=== PATIENT | female | born 1945 | race Caucasian/White ===

== ENCOUNTER 2018-11-30 10:54 | Inpatient (IN) ==
--- OUTSIDE RECORDS SUMMARY | 2018-11-30 10:56 | External Medical Summary | Continuity of Care Document ---
:1945 Author Name Sana Betancourt, Provider Address Unavailable Unavailable , Care Team Providers Name Role Phone Raul Rolon M.D. Unavailable [email or web address] Unavailable Unavailable Unavailable Unavailable Unavailable Problems Arthritis (716.90) (M19.90) Asthma (493.90) (J45.909) Renal mass (593.9) (N28.89) Hypercholesterolemia (272.0) (E78.00) Hypertension (401.9) (I10) Diabetes mellitus (250.00) (E11.9) Bronchitis (490) (J40) Allergies and Adverse Reactions No Known Drug Allergies (Allergy) Medications Aspirin EC 325 MG Oral Tablet Delayed Release Refills: 0 Carvedilol 3.125 MG Oral Tablet Refills: 0 hydroCHLOROthiazide 25 MG Oral Tablet Refills: 0 Losartan Potassium 100 MG Oral Tablet Refills: 0 ALPRAZolam 0.25 MG Oral Tablet Refills: 0 Mag-Ox TABS Refills: 0 metFORMIN HCl - 1000 MG Oral Tablet Refills: 0 Crestor 5 MG Oral Tablet Refills: 0 Levothyroxine Sodium 50 MCG Oral Tablet Refills: 0 Vitamin D3 2000 UNIT Oral Tablet Refills: 0 NIFEdipine ER 30 MG Oral Tablet Extended Release 24 Hour Refills: 0 Singulair 10 MG Oral Tablet Refills: 0 ProAir HFA AERS Refills: 0 Vitamin B-12 TABS Refills: 0 Lasix 40 MG Oral Tablet Refills: 0 glipiZIDE 5 MG Oral Tablet Refills: 0 Lantus SOLN Refills: 0 Procedures History of knee surgery Status: Complete d History of cholecystectomy Status: Compl eted Immunizations Immunizations not documented Social History - Smoking Status Never smoker Plan of Treatment Planned Encounters Appointment; Raul Rolon M.D. Start: 25-Sep-2019 14:00 Request Planned Observations Planned Goals not documented Results No Known Results Results not documented Encounters Appointment; Raul Rolon M.D. 26-Sep-2018 13:00 Encounter Diagnosis: Problem not documented Appointment; Raul Rolon M.D. 20-Dec-2017 14:00 Encounter Diagnosis: Problem not documented Appointment; Raul Rolon M.D. 05-Jul-2017 14:10 Encounter Diagnosis: Problem not documented Appointment; Raul Rolon M.D. 25-Sep-2019 14:00 Encounter Diagnosis: Problem not documented
[2018-11-30] MEDS ORDERED: SODIUM CHLORIDE 0.9% 500 ML IV SCH (11:30)
[2018-11-30 11:42] LABS: Basophils # (auto) 0.05 K/uL (0-0.2); Basophils % (auto) 0.6 %; Eosinophils # (auto) 0.17 K/uL (0-0.5); Eosinophils % (auto) 1.9 %; Hematocrit (blood only) 36.9 % (37-47); Immature Granulocytes # (auto) 0.06 K/uL (0.00-0.02); Immature Granulocytes % (auto) 0.7 %; Lymphocytes % (auto) 14.4 %; Mean Corpuscular Hgb Conc 35.2 g/dL (32-36); Mean Platelet Volume 7.9 fL (7.4-10.4); Monocytes # (auto) 1.06 K/uL (0.11-0.59); Monocytes % (auto) 11.8 %; Neutrophils # (auto) 6.37 K/uL (1.4-6.5); Neutrophils % (auto) 70.6 %; Platelet Count 219 K/uL (130-400); RDW Coefficient of Variation 13.3 % (11.5-14.5); RDW Standard Deviation 41.7 fL (36.4-46.3); Red Blood Count 4.29 M/uL (4.2-5.4); White Blood Count 9.01 K/uL (4.8-10.8)
[2018-11-30 11:54] LABS: Partial Thromboplastin Ratio 1.2; Partial Thromboplastin Time 31.2 Seconds (21.0-31.0); Prothrombin Time 10.7 Seconds (9.0-12.0)
[2018-11-30 11:59] LABS: Alanine Aminotransferase 18 U/L (12-78); Albumin Level 3.7 gm/dl (3.4-5.0); Aspartate Aminotransferase 15 U/L (15-37); BUN Creatinine Ratio 10.7 (10-20); Blood Urea Nitrogen 9 mg/dl (7-18); Carbon Dioxide 30 mmol/L (21-32); Chloride 88 mmol/L (98-107); Creatinine Clr Calc Pharmacy 61.7 ml/min; Est GFR (African American) 81.1; Glucose 96 mg/dl (70-99); Potassium 3.6 mmol/L (3.5-5.1); Sodium 126 mmol/L (136-145)
[2018-11-30 12:04] LABS: Alkaline Phosphatase 100 U/L (45-117); Bilirubin,Total 0.9 mg/dl (0.2-1); Globulin 3.7 gm/dl (2.5-4.0); Total Protein 7.4 gm/dl (6.4-8.2); Troponin I < 0.015 ng/ml (0-0.045)
--- NOTE | 2018-11-30 12:11 | XRay Report ---
XR chest 1V portable CLINICAL HISTORY: Dyspnea. COMPARISON STUDY: No previous studies for comparison. FINDINGS: Lung volumes are normal. There is no pneumothorax or pleural effusion. Linear left midlung opacity suggests atelectasis or scarring. There is moderate cardiomegaly without evidence for pulmona ry edema. There may be mild dilatation of the central pulmonary arteries. IMPRESSION: 1. No acute cardiopulmonary findings. 2. Moderate cardiomegaly. 3. Right hilar prominence which is likely due to vasculature. Electronically signed by: Ramana Barrios M.D. 11/30/2018 12:10 PM
[2018-11-30] MEDS ORDERED: OPTIRAY 320 125ml IV PRN (12:34)
[2018-11-30 13:04] LABS: Appearance Urine Clear (Clear); Bilirubin Urine Negative (Negative); Blood Urine Negative (Negative); Color Urine Yellow; Glucose Urine UA Negative (Negative); Ketones Urine Negative (Negative); Leukocyte Esterase Urine Negative (Negative); Nitrite Urine Negative (Negative); Protein Urine Negative (Negative); Specific Gravity Urine 1.013 (1.000-1.030); Urobilinogen Urine Negative (Negative); pH Urine 7.5 (4.5-7.5)
--- NOTE | 2018-11-30 13:05 | CT Scan Report ---
CT ANGIOGRAPHY OF THE CHEST, PULMONARY EMBOLUS PROTOCOL CLINICAL HISTORY: Dyspnea, cough. COMPARISON STUDY: Chest radiograph performed earlier today. TECHNIQUE: Following IV administration of 76 mL of Optiray-320, helical axial images of the chest wer e obtained utilizing the pulmonary embolus protocol. Maximal intensity projections and sagittal and coronal reformats were viewed on an independent 3D workstation. IV contrast was administered without complication. Automated exposure control was utilized for the study. A dose lowering technique was utilized adhering to the principles of ALARA. CT DOSE: 627.52 mGy.cm FINDINGS: No pulmonary emboli are identified although the segmental and subsegmental pulmonary arter ies within the left lower lobe are suboptimally assessed due to respiratory motion. There is moderate cardiomegaly with moderate coronary artery calcification. There is no pericardial effusion. There is no thoracic lymphadenopathy. Central airways are patent. No consolidation is present. Minimal ground glass opacities with mosaic attenuation are noted. Upper abdomen is unremarkable. IMPRESSION: 1. No pulmonary emboli identified although segmental and subsegmental pulmonary arteries within the l eft lower lobe suboptimally assessed due to respiratory motion. 2. Moderate cardiomegaly. Moderate coronary artery calcification. Electronically signed by: Ramana Barrios M.D. 11/30/2018 1:03 PM
--- NOTE | 2018-11-30 13:27 | Emergency Department Note ---
Entered by Solis Bond acting as a scribe for Reji Serra M.D. History of Present Illness General Chief complaint: Cough Stated complaint: COUGH, DIARRHEA Source: patient History of Present Illness Onset (ago): week(s) (past couple) Location: chest (lungs) Pain Consistency: + other (persistent) Quality: + other (cough) Associated symptoms: + other (diarrhea, nausea without vomiting); no chest pain and no fever/chills The patient is a 73 year old female who presents to the Emergency Room with complaints of a persistent cough over the past couple of weeks. The patient states that her cough is occasionally productive of clear phlegm. She was placed on Tessalon Perles that seemed to somewhat improve her symptoms, but she has not taken it in the past couple days. She reports diarrhea as well as nausea primarily in the mornings. She denies vomiting, fevers, chest pain, or leg swelling. Family at bedside states that the patient has had loss of appetite and has lost 30 pounds over the past 2-3 months. The patient states that she has diabetes and her blood sugar has been normal over the past few days, but she did not measure it this morning. Home Medications Home Medications Medication Instructions Recorded Confirmed Type allopurinol 100 mg PO DAILY 11/30/18 11/30/18 History alprazolam 0.25 mg PO QID PRN 11/30/18 11/30/18 History aspirin 325 mg PO Q2D 11/30/18 11/30/18 History atorvastatin 10 mg PO QPM 11/30/18 11/30/18 History carvedilol 6.25 mg PO BID 11/30/18 11/30/18 History cholecalciferol (vitamin D3) 1,000 unit PO QPM 11/30/18 11/30/18 History hydrochlorothiazide 25 mg PO DAILY 11/30/18 11/30/18 History insulin glargine [Basaglar KwikPen 25 unit SUBCUT 11/30/18 11/30/18 History U-100 Insulin] levothyroxine 75 mcg PO DAILY 11/30/18 11/30/18 History losartan 100 mg PO HS 11/30/18 11/30/18 History magnesium oxide 400 mg PO BID 11/30/18 11/30/18 History metformin 500 mg PO BID 11/30/18 11/30/18 History montelukast 10 mg PO HS 11/30/18 11/30/18 History nifedipine 30 mg PO DAILY@1400 11/30/18 11/30/18 History ranitidine HCl 300 mg PO QAM 11/30/18 11/30/18 History Allergies Allergy/AdvReac Type Severity Reaction Status Date / Time KVNG Inhibitors Allergy Unknown UNKNOWN Verified 11/30/18 11:25 Penicillins Allergy Unknown . 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 and A total of 10 systems reviewed and were otherwise negative Physical Exam Vital Signs Vital Signs - 24 hr 11/30/18 10:56 11/30/18 12:20 11/30/18 13:43 Temperature 36.7 C Temperature Source Oral Sepsis Recent Fever Within 48 Hours No Sepsis Action Taken by Nursing No Action Required Pulse Rate 55 L Pulse Rate [Finger] 69 Respiratory Rate 18 17 Blood Pressure 179/80 H Blood Pressure [Left Arm] 167/82 H Blood Pressure Mean 113 Blood Pressure Mean [Left Arm] 110 Blood Pressure Position Sitting Pulse Oximetry 97 95 96 Oxygen Delivery Method Room Air Room Air GENERAL: Awake, alert, well-appearing, in no distress HENT: Normocephalic, atraumatic. EYES: Normal conjunctiva. Sclera non-icteric. NECK: Supple. No nuchal rigidity. RESPIRATORY: Diminished breath sounds at the lung bases. No wheezes. Normal respiratory effort. CARDIAC: Normal rate. Normal rhythm. Extremities warm and well perfused. GI: Soft, non-distended. No tenderness to palpation. No rebound or guarding. RECTAL: Deferred. MUSCULOSKELETAL: Atraumatic. Chest examination reveals no tenderness. LOWER EXTREMITIES: Calves are equal size bilaterally and non-tender. Trace bilateral pedal edema NEURO: Normal sensorium. No sensory or motor deficits noted. No facial droop. SKIN: Warm and dry. No rash or jaundice noted. Course 1109: The patient was evaluated in room C12B. A complete history and physical examination were performed. 1310: I updated the patient on findings. 1317: I consulted Yazmin Amador PA-C: [facility] Hospitalist. The patient will be reevaluated for hospitalization. Administered Medications Enoxaparin Sodium (Lovenox) 40 mg SQ Q24H LAISHA Stop: 12/30/18 15:59 Last Admin: 11/30/18 16:34 Dose: 40 mg Documented by: [id number] Sodium Chloride (Nss 1000ml) 1,000 mls @ 85 mls/hr IV .[id number] LAISHA Stop: 12/01/18 03:30 Last Admin: 11/30/18 15:52 Dose: 85 mls/hr Documented by: [id number] Insulin Aspart (Novolog Flexpen) 0 units SC ACHS LAISHA Stop: 12/30/18 16:29 Last Admin: 11/30/18 17:14 Dose: Not Given Documented by: [id number] Cosigned by: [id number] Discontinued Medications Sodium Chloride (Nss) 500 mls @ 999 mls/hr IV .[id number] LAISHA Stop: 11/30/18 12:00 Last Infusion: 11/30/18 12:10 Dose: 0 mls/hr Documented by: [id number] Admin: 11/30/18 11:37 Dose: 999 mls/hr Documented by: [id number] Ioversol (Optiray 320 125ml) 76 ml IV ONCE PRN PRN Reason: Interaction Checking Stop: 12/04/18 12:33 Last Admin: 11/30/18 12:34 Dose: 76 ml Documented by: [id number] Nifedipine (Procardia) 30 mg PO NOW STA Stop: 11/30/18 14:56 Last Admin: 11/30/18 16:33 Dose: 30 mg Documented by: [id number] Medical Decision Making Differential Diagnosis Differential diagnosis includes: infections, reactive airway disease, pneumonia, pneumothorax, COPD, CHF, cardiac ischemia, pulmonary embolism, musculoskeletal, gastrointestinal, as well as others were entertained. Medical Records Attestation: I reviewed the patient's medical records. Home Medications Current Medication List: was personally reviewed by me Laboratory Data Attestation: I reviewed the patient's lab results. Result diagrams: 11/30/18 11:30 11/30/18 11:30 Lab Results 11/30/18 11/30/18 11/30/18 Range/Units 11:30 11:30 11:30 WBC 9.01 (4.8-10.8) K/uL RBC 4.29 (4.2-5.4) M/uL Hgb 13.0 (12.0-16.0) g/dL Hct 36.9 L (37-47) % MCV 86.0 (80-100) fL MCH 30.3 (25-34) pg MCHC 35.2 (32-36) g/dL RDW Std Deviation 41.7 (36.4-46.3) fL RDW Coeff of Carly 13.3 (11.5-14.5) % Plt Count 219 (130-400) K/uL MPV 7.9 (7.4-10.4) fL Immature Gran % (Auto) 0.7 % Neut % (Auto) 70.6 % Lymph % (Auto) 14.4 % Glynn % (Auto) 11.8 % Eos % (Auto) 1.9 % Baso % (Auto) 0.6 % Immature Gran # (Auto) 0.06 H (0.00-0.02) K/uL Neut # (Auto) 6.37 (1.4-6.5) K/uL Lymph # (Auto) 1.30 (1.2-3.4) K/uL Glynn # (Auto) 1.06 H (0.11-0.59) K/uL Eos # (Auto) 0.17 (0-0.5) K/uL Baso # (Auto) 0.05 (0-0.2) K/uL PT 10.7 (9.0-12.0) Seconds INR 1.0 (0.9-1.1) APTT 31.2 H (21.0-31.0) Seconds PTT Ratio 1.2 Sodium 126 L (136-145) mmol/L Potassium 3.6 (3.5-5.1) mmol/L Chloride 88 L (98-107) mmol/L Carbon Dioxide 30 (21-32) mmol/L Anion Gap 8.0 (3-11) BUN 9 (7-18) mg/dl Creatinine 0.83 (0.6-1.2) mg/dl Est Cr Clr Drug Dosing 61.7 ml/min Est GFR ( Amer) 81.1 Est GFR (Non-Af Amer) 70.0 BUN/Creatinine Ratio 10.7 (10-20) Glucose 96 (70-99) mg/dl POC Glucose (70-99) Osmolality (280-300) mOsm/kg Calcium 10.0 (8.5-10.1) mg/dl Total Bilirubin 0.9 (0.2-1) mg/dl AST 15 (15-37) U/L ALT 18 (12-78) U/L Alkaline Phosphatase 100 (45-117) U/L Troponin I < 0.015 (0-0.045) ng/ml Total Protein 7.4 (6.4-8.2) gm/dl Albumin 3.7 (3.4-5.0) gm/dl Globulin 3.7 (2.5-4.0) gm/dl Albumin/Globulin Ratio 1.0 (0.9-2) Lipase 90 (73-393) U/L TSH (0.300-4.500) uIu/ml Urine Color Urine Appearance (Clear) Urine pH (4.5-7.5) Ur Specific [place] (1.000-1.030) Urine Protein (Negative) Urine Glucose (UA) (Negative) Urine Ketones (Negative) Urine Blood (Negative) Urine Nitrite (Negative) Urine Bilirubin (Negative) Urine Urobilinogen (Negative) Ur Leukocyte Esterase (Negative) Urine Osmolality (500-800) mOsm/kg Ur Random Sodium mmol/L 11/30/18 11/30/18 11/30/18 Range/Units 11:30 11:30 11:30 WBC (4.8-10.8) K/uL RBC (4.2-5.4) M/uL Hgb (12.0-16.0) g/dL Hct (37-47) % MCV (80-100) fL MCH (25-34) pg MCHC (32-36) g/dL RDW Std Deviation (36.4-46.3) fL RDW Coeff of Carly (11.5-14.5) % Plt Count (130-400) K/uL MPV (7.4-10.4) fL Immature Gran % (Auto) % Neut % (Auto) % Lymph % (Auto) % Glynn % (Auto) % Eos % (Auto) % Baso % (Auto) % Immature Gran # (Auto) (0.00-0.02) K/uL Neut # (Auto) (1.4-6.5) K/uL Lymph # (Auto) (1.2-3.4) K/uL Glynn # (Auto) (0.11-0.59) K/uL Eos # (Auto) (0-0.5) K/uL Baso # (Auto) (0-0.2) K/uL PT (9.0-12.0) Seconds INR (0.9-1.1) APTT (21.0-31.0) Seconds PTT Ratio Sodium (136-145) mmol/L Potassium (3.5-5.1) mmol/L Chloride (98-107) mmol/L Carbon Dioxide (21-32) mmol/L Anion Gap (3-11) BUN (7-18) mg/dl Creatinine (0.6-1.2) mg/dl Est Cr Clr Drug Dosing ml/min Est GFR ( Amer) Est GFR (Non-Af Amer) BUN/Creatinine Ratio (10-20) Glucose (70-99) mg/dl POC Glucose (70-99) Osmolality 257 L (280-300) mOsm/kg Calcium (8.5-10.1) mg/dl Total Bilirubin (0.2-1) mg/dl AST (15-37) U/L ALT (12-78) U/L Alkaline Phosphatase (45-117) U/L Troponin I (0-0.045) ng/ml Total Protein (6.4-8.2) gm/dl Albumin (3.4-5.0) gm/dl Globulin (2.5-4.0) gm/dl Albumin/Globulin Ratio (0.9-2) Lipase Cancelled (73-393) U/L TSH 2.970 (0.300-4.500) uIu/ml Urine Color Urine Appearance (Clear) Urine pH (4.5-7.5) Ur Specific [place] (1.000-1.030) Urine Protein (Negative) Urine Glucose (UA) (Negative) Urine Ketones (Negative) Urine Blood (Negative) Urine Nitrite (Negative) Urine Bilirubin (Negative) Urine Urobilinogen (Negative) Ur Leukocyte Esterase (Negative) Urine Osmolality (500-800) mOsm/kg Ur Random Sodium mmol/L 11/30/18 11/30/18 11/30/18 Range/Units 11:35 12:45 12:50 WBC (4.8-10.8) K/uL RBC (4.2-5.4) M/uL Hgb (12.0-16.0) g/dL Hct (37-47) % MCV (80-100) fL MCH (25-34) pg MCHC (32-36) g/dL RDW Std Deviation (36.4-46.3) fL RDW Coeff of Carly (11.5-14.5) % Plt Count (130-400) K/uL MPV (7.4-10.4) fL Immature Gran % (Auto) % Neut % (Auto) % Lymph % (Auto) % Glynn % (Auto) % Eos % (Auto) % Baso % (Auto) % Immature Gran # (Auto) (0.00-0.02) K/uL Neut # (Auto) (1.4-6.5) K/uL Lymph # (Auto) (1.2-3.4) K/uL Glynn # (Auto) (0.11-0.59) K/uL Eos # (Auto) (0-0.5) K/uL Baso # (Auto) (0-0.2) K/uL PT (9.0-12.0) Seconds INR (0.9-1.1) APTT (21.0-31.0) Seconds PTT Ratio Sodium (136-145) mmol/L Potassium (3.5-5.1) mmol/L Chloride (98-107) mmol/L Carbon Dioxide (21-32) mmol/L Anion Gap (3-11) BUN (7-18) mg/dl Creatinine (0.6-1.2) mg/dl Est Cr Clr Drug Dosing ml/min Est GFR ( Amer) Est GFR (Non-Af Amer) BUN/Creatinine Ratio (10-20) Glucose (70-99) mg/dl POC Glucose 104 H (70-99) Osmolality (280-300) mOsm/kg Calcium (8.5-10.1) mg/dl Total Bilirubin (0.2-1) mg/dl AST (15-37) U/L ALT (12-78) U/L Alkaline Phosphatase (45-117) U/L Troponin I (0-0.045) ng/ml Total Protein (6.4-8.2) gm/dl Albumin (3.4-5.0) gm/dl Globulin (2.5-4.0) gm/dl Albumin/Globulin Ratio (0.9-2) Lipase (73-393) U/L TSH (0.300-4.500) uIu/ml Urine Color Yellow Urine Appearance Clear (Clear) Urine pH 7.5 (4.5-7.5) Ur Specific [place] 1.013 (1.000-1.030) Urine Protein Negative (Negative) Urine Glucose (UA) Negative (Negative) Urine Ketones Negative (Negative) Urine Blood Negative (Negative) Urine Nitrite Negative (Negative) Urine Bilirubin Negative (Negative) Urine Urobilinogen Negative (Negative) Ur Leukocyte Esterase Negative (Negative) Urine Osmolality 166 L (500-800) mOsm/kg Ur Random Sodium mmol/L 11/30/18 Range/Units 12:50 WBC (4.8-10.8) K/uL RBC (4.2-5.4) M/uL Hgb (12.0-16.0) g/dL Hct (37-47) % MCV (80-100) fL MCH (25-34) pg MCHC (32-36) g/dL RDW Std Deviation (36.4-46.3) fL RDW Coeff of Carly (11.5-14.5) % Plt Count (130-400) K/uL MPV (7.4-10.4) fL Immature Gran % (Auto) % Neut % (Auto) % Lymph % (Auto) % [place]nn % (Auto) % Eos % (Auto) % Baso % (Auto) % Immature Gran # (Auto) (0.00-0.02) K/uL Neut # (Auto) (1.4-6.5) K/uL Lymph # (Auto) (1.2-3.4) K/uL Glynn # (Auto) (0.11-0.59) K/uL Eos # (Auto) (0-0.5) K/uL Baso # (Auto) (0-0.2) K/uL PT (9.0-12.0) Seconds INR (0.9-1.1) APTT (21.0-31.0) Seconds PTT Ratio Sodium (136-145) mmol/L Potassium (3.5-5.1) mmol/L Chloride (98-107) mmol/L Carbon Dioxide (21-32) mmol/L Anion Gap (3-11) BUN (7-18) mg/dl Creatinine (0.6-1.2) mg/dl Est Cr Clr Drug Dosing ml/min Est GFR ( Amer) Est GFR (Non-Af Amer) BUN/Creatinine Ratio (10-20) Glucose (70-99) mg/dl POC Glucose (70-99) Osmolality (280-300) mOsm/kg Calcium (8.5-10.1) mg/dl Total Bilirubin (0.2-1) mg/dl AST (15-37) U/L ALT (12-78) U/L Alkaline Phosphatase (45-117) U/L Troponin I (0-0.045) ng/ml Total Protein (6.4-8.2) gm/dl Albumin (3.4-5.0) gm/dl Globulin (2.5-4.0) gm/dl Albumin/Globulin Ratio (0.9-2) Lipase (73-393) U/L TSH (0.300-4.500) uIu/ml Urine Color Urine Appearance (Clear) Urine pH (4.5-7.5) Ur Specific [place] (1.000-1.030) Urine Protein (Negative) Urine Glucose (UA) (Negative) Urine Ketones (Negative) Urine Blood (Negative) Urine Nitrite (Negative) Urine Bilirubin (Negative) Urine Urobilinogen (Negative) Ur Leukocyte Esterase (Negative) Urine Osmolality (500-800) mOsm/kg Ur Random Sodium 37 mmol/L Imaging Data Radiologist's Impression: Radiology results as stated below per my review and the radiologist's interpretation: CT ANGIOGRAPHY OF THE CHEST, PULMONARY EMBOLUS PROTOCOL CLINICAL HISTORY: Dyspnea, cough. COMPARISON STUDY: Chest radiograph performed earlier today. TECHNIQUE: Following IV administration of 76 mL of Optiray-320, helical axial images of the chest were obtained utilizing the pulmonary embolus protocol. Maximal intensity projections and sagittal and coronal reformats were viewed on an independent 3D workstation. IV contrast was administered without complication. Automated exposure control was utilized for the study. A dose lowering technique was utilized adhering to the principles of ALARA. CT DOSE: 627.52 mGy.cm FINDINGS: No pulmonary emboli are identified although the segmental and subs egmental pulmonary arteries within the left lower lobe are suboptimally assessed due to respiratory motion. There is moderate cardiomegaly with moderate coronary artery calcification. There is no pericardial effusion. There is no thoracic lymphadenopathy. Central airways are patent. No consolidation is present. Minimal groundglass opacities with mosaic attenuation are noted. Upper abdomen is unremarkable. IMPRESSION: 1. No pulmonary emboli identified although segmental and subsegmental pulmonary arteries within the left lower lobe suboptimally assessed due to respiratory motion. 2. Moderate cardiomegaly. Moderate coronary artery calcification. Electronically signed by: Ramana Barrios M.D. 11/30/2018 1:03 PM XR chest 1V portable CLINICAL HISTORY: Dyspnea. COMPARISON STUDY: No previous studies for comparison. FINDINGS: Lung volumes are normal. There is no pneumothorax or pleural effusion. Linear left midlung opacity suggests atelectasis or scarring. There is moderate cardiomegaly without evidence for pulmonary edema. There may be mild dilatation of the central pulmonary arteries. IMPRESSION: 1. No acute cardiopulmonary findings. 2. Moderate cardiomegaly. 3. Right hilar prominence which is likely due to vasculature. Electronically signed by: Ramana Barrios M.D. 11/30/2018 12:10 PM ECG Data Attestation: I personally reviewed and interpreted this ECG as follows: Indication: weakness Rate (beats per minute): 58 Rhythm: sinus bradycardia Findings: + PAC and + RBBB (incomplete); no ST depression and no ST elevation Blood Pressure Blood Pressure Findings: Elevated blood pressure Blood Pressure Disposition: further management by hospitalist SAMANTHA Naylor Patient is a 73-year-old female with history of cellulitis, diabetes hypothyroidism, hyperlipidemia presenting today with complaint of one month of a cough initially dry now somewhat productive. Also reports some nausea in the morning and feeling a bit weak. Referred by primary care physician for rule out pneumonia versus bronchitis. Afebrile upon arrival and not hypoxic. EKG was completed lower suspicion this is acute ACS. No gross evidence of fluid overload. Chest x-ray is completed. Doubt this represents pulmonary embolism or aortic dissection. No evidence of pneumothorax. Patient also relays some nausea at times as well as some loose stools that time. Benign abdomen. Relays the months of weight loss. No significant lower extremity swelling. Family also concerned about possible intrathoracic mass or blood clot and CT scan was requested and completed. EKG and troponin was completed as well as basic laboratory studies. No evidence of acute heart failure. No significant leukocytosis or anemia. Patient does interestingly have a new hyponatremia of 126. No evidence of hepatitis or pancreatitis. No with acute kidney injury. Patient not having acute mental status changes but feeds were weakened with the acute hyponatremia due to some concern about this. Patient again states decreased oral intake over the past week and further probing relays that she has been may be a little bit more confused recently. Given this discussed with her and her family to stay in the hospital further evaluation of this normalization of her sodium level extremities on her symptoms. She was in agreement with this plan. [facility] hospitalist was contacted. Impression & Plan Hyponatremia, Cough, Weakness Discharge Plan Visit Data *Final* Discharge Date/Time: 11/30/18 14:50 Chief Complaint: Cough Stated Complaint: COUGH, DIARRHEA ED Provider: Reji Serra Discharge Problem: Hyponatremia, Cough, Weakness Patient Disposition: Admitted As Inpatient Discharge Instructions Interventions: ED Discharge Assessment Last Done: 11/30/18 14:50 The scribe's documentation has been prepared under my direction and personally reviewed by me in its entirety. I confirm that the note above accurately reflects all work, treatment, procedures, and medical decision making performed by me.
--- NOTE | 2018-11-30 14:50 | History & Physical Report ---
Date of Service November 30, 2018 Assessment & Plan (1) Hyponatremia: This is a 73-year-old female with a PMH of type 2 diabetes, hypertension, hyperlipidemia, anxiety, hypothyroidism and other medical problems listed below who presents with cough x 2 weeks as well as nausea and was found to have hyponatremia. -Sodium of 126 in setting of poor PO intake, diarrhea and diuretic use -Serum and urine osm both low, indicating hypotonic hypovolemic hyponatremia -Likely due to diuretic use as well as GI losses from recent diarrhea -Received 500ml bolus of NSS in ED. Will continue with 1L NSS at maintenance rate and recheck BMP this evening -Hold HCTZ (2) Cough: Likely due to allergic rhinitis -No evidence of PNA, volume overload or PE on CXR or chest CTA -Continue with home dose Singulair -Follow up with PCP (3) Hypertension: Elevated at time of evaluation, due for afternoon home dose of nicardipine -Continue losartan -Hold HCTZ due to hyponatremia (4) Diabetes mellitus, type II: A1c unknown. Ordered -Hold home agents -SSI while in-patient -BSG AC HS (5) Hypothyroidism: Continue levothyroxine (6) CAD (coronary artery disease): Cardiac cath in January 2018 without evidence of obstructive disease -Continue full dose aspirin q. 2 days, carvedilol, statin (7) Anxiety: Alprazolam at bedtime as needed DVT Ppx: SQ Lovenox Code status: FULL PCP: Lela (Brandt) Dispo: Admitted to [facility]. Plan to return home once medically stable. Patient seen in collaboration with Dr. Da Silva. Please see addendum. History of Present Illness Chief Complaint: Cough, nausea Primary Care Provider: Logan Vogel This is a 73-year-old female with a PMH of type 2 diabetes, hypertension, hyperlipidemia, anxiety, hypothyroidism and other medical problems listed below who presents with cough x 2 weeks. Patient has had cough with occasional clear productive sputum for the last few weeks. Saw PCP about this, who attributed symptoms to allergies. In the last week, patient has had nausea in the morning and a few days of diarrhea following eating food that had been sitting in the car for a few hours. Diarrhea has slowly been subsiding. Endorses poor PO intake for the past few weeks. Daughter at bedside notes that patient seems a bit more confused than normal. Denies any vomiting or abdominal pain. No fever, chills, wheezing or hemoptysis. Patient was directed by PCP to come in the ED today for further evaluation of pneumonia. Hemodynamically stable. No acute cardiopulmonary findings on chest x-ray. No evidence of PE on chest CTA. Sodium found to be 126. Allergies Allergy/AdvReac Type Severity Reaction Status Date / Time KVNG Inhibitors Allergy Unknown UNKNOWN Verified 11/30/18 11:25 Penicillins Allergy Unknown . Verified 11/30/18 11:25 prednisone Allergy Unknown UNKNOWN Verified 11/30/18 11:25 Home Medications Home Medications Medication Instructions Recorded Confirmed Type allopurinol 100 mg PO DAILY 11/30/18 11/30/18 History alprazolam 0.25 mg PO QID PRN 11/30/18 11/30/18 History aspirin 325 mg PO Q2D 11/30/18 11/30/18 History atorvastatin 10 mg PO QPM 11/30/18 11/30/18 History carvedilol 6.25 mg PO BID 11/30/18 11/30/18 History cholecalciferol (vitamin D3) 1,000 unit PO QPM 11/30/18 11/30/18 History hydrochlorothiazide 25 mg PO DAILY 11/30/18 11/30/18 History insulin glargine [Basaglar KwikPen 25 unit SUBCUT HS 11/30/18 11/30/18 History U-100 Insulin] levothyroxine 75 mcg PO DAILY 11/30/18 11/30/18 History losartan 100 mg PO HS 11/30/18 11/30/18 History magnesium oxide 400 mg PO BID 11/30/18 11/30/18 History metformin 500 mg PO BID 11/30/18 11/30/18 History montelukast 10 mg PO HS 11/30/18 11/30/18 History nifedipine 30 mg PO DAILY@1400 11/30/18 11/30/18 History ranitidine HCl 300 mg PO QAM 11/30/18 11/30/18 History Past Med/Surg History Medical History CAD (coronary artery disease) (Chronic) Anxiety (Chronic) Gout (Chronic) HLD (hyperlipidemia) (Chronic) Hypothyroidism (Chronic) Diabetes mellitus, type II (Chronic) Hypertension (Chronic) Surgical History History of bilateral knee replacement (Chronic) History of cholecystectomy (Chronic) Family History Other Heart disease Stomach cancer Social History Preferred Language: Brazilian Communication Ability: Effective Film Processor Required: No Beliefs That Will Affect Care: None Current Living Situation: Spouse Other Information That Helps Us Care for You: No Feels Safe at Home: Yes Safety Concerns: Feels Safe At This Time Smoking Status: Never smoker Do You Dip or Chew Tobacco: No Second Hand Exposure: No Tobacco Cessation Education Requested by Patient: No Hx Alcohol Use: Yes Alcohol type: wine Hx Substance Use: No Review of Systems Review of Systems: At least ten systems reviewed and negative except as noted in the HPI. Physical Exam Physical Exam: General Appearance: WD/WN, no apparent distress, resting comfortably Head: normocephalic, atraumatic Eyes: normal inspection, PERRL, EOMI ENT: hearing grossly normal, pharynx normal (dry mucous membranes, cobblestoning of posterior throat) Neck: supple, no JVD, no adenopathy Respiratory/Chest: lungs clear to auscultation. No wheezes, rales or rhonci. No respiratory distress or accessory muscle use Cardiovascular: regular rate, rhythm, no murmur, normal peripheral pulses Abdomen/GI: normal bowel sounds, soft, non-tender to palpation Extremities/Musculoskelatal: normal inspection, no calf tenderness, normal capillary refill, no pedal edema Neurologic/Psych: alert, normal mood/affect, oriented x 3 Skin: normal color, warm/dry, ecchymosis on R dorsum of hand Results & Data Vital Signs (Past 12 Hours) Vital Signs Temp Pulse Pulse Resp BP BP Pulse Ox 11/30/18 14:20 56 L 18 192/72 H 97 11/30/18 13:43 96 11/30/18 12:20 69 17 167/82 H 95 11/30/18 10:56 36.7 C 55 L 18 179/80 H 97 Laboratory Results Short CBC 11/30/18 Range/Units 11:30 WBC 9.01 (4.8-10.8) K/uL Hgb 13.0 (12.0-16.0) g/dL Hct 36.9 L (37-47) % Plt Count 219 (130-400) K/uL BMP 11/30/18 11:30 Sodium 126 L Potassium 3.6 Chloride 88 L Carbon Dioxide 30 BUN 9 Creatinine 0.83 Glucose 96 Calcium 10.0 Cardiac Enzymes 11/30/18 Range/Units 11:30 Troponin I < 0.015 (0-0.045) ng/ml Liver Function 11/30/18 Range/Units 11:30 Total Bilirubin 0.9 (0.2-1) mg/dl AST 15 (15-37) U/L ALT 18 (12-78) U/L Alkaline Phosphatase 100 (45-117) U/L Albumin 3.7 (3.4-5.0) gm/dl Urine 11/30/18 Range/Units 12:45 Urine Color Yellow Urine Appearance Clear (Clear) Urine pH 7.5 (4.5-7.5) Ur Specific [place] 1.013 (1.000-1.030) Urine Protein Negative (Negative) Urine Glucose (UA) Negative (Negative) Diagnostic Findings CXR: IMPRESSION: 1. No acute cardiopulmonary findings. 2. Moderate cardiomegaly. 3. Right hilar prominence which is likely due to vasculature. Chest CTA: IMPRESSION: 1. No pulmonary emboli identified although segmental and subsegmental pulmonary arteries within the left lower lobe suboptimally assessed due to respiratory motion. 2. Moderate cardiomegaly. Moderate coronary artery calcification. Supervising Physician Co-Signing Physician Notes Pt was seen and examined. Agreed with [facility] exam, assessment and plan. 73-year-old female with a PMH of type 2 diabetes, hypertension, hyperlipidemia, anxiety, hypothyroidism present to the ED for cough. Pt said that cough has been going on for weeks. She said that she used tessalon perle with minimal relief. She said that she has been having a hard time to bring the phlegm out. Pt said that on Sunday she developed watery diarrhea after eating food that was stayed in the car over night. Pt said that her dog and her also ate the food and had the diarrhea as well. On admission lab showed low Na 126. Pt said that diarrhea seems to improve. Denies any chest pain, palpitation, dizziness and SOB. Will hold HTCZ. Will continue IV hydration with NS. Check BMP later. Continue monitor closely. Please refer to Yazmin PA-C documentation for other problems. MD Rekha
[2018-11-30] MEDS ORDERED: NIFEdipine 10 MG CAP PO STA (14:55)
[2018-11-30] MEDS ORDERED: ACETAMINOPHEN 325 MG TAB PO PRN (15:20)
[2018-11-30] MEDS ORDERED: GLUCOSE 10 TABS/TUBE PO PRN (15:20)
[2018-11-30] MEDS ORDERED: ONDANSETRON INJ 2 MG/ML 2 ML VIAL IV PRN (15:20)
[2018-11-30] MEDS ORDERED: CARBOHYDRATES FOR HYPOGLYCEMIA PO PRN (15:20)
[2018-11-30] MEDS ORDERED: GLUCAGON FOR INJ 1 MG VIAL SQ PRN (15:20)
[2018-11-30] MEDS ORDERED: GLUCOSE 40% GEL 15 GM TUBE PO PRN (15:20)
[2018-11-30] MEDS ORDERED: DEXTROSE 50% 50 ML SYRINGE IV PRN (15:20)
[2018-11-30] MEDS ORDERED: POLYETHYLENE (MIRALAX) 17 GM PACK PO PRN (15:20)
[2018-11-30] MEDS: SODIUM CHLORIDE 0.9% 1000ML 1,000 ML IV SCH (15:52)
[2018-11-30] MEDS: ENOXAPARIN INJ 40 MG/0.4 ML SYR SQ SCH (16:34)
[2018-11-30] MEDS: INSULIN ASPART 100 UNITS/ML 3 ML PEN SC SCH ×2 (17:14→21:39)
[2018-11-30 19:22] LABS: BUN Creatinine Ratio 9.6 (10-20); Calcium 9.1 mg/dl (8.5-10.1); Creatinine Clr Calc Pharmacy 62.5 ml/min; Est GFR (African American) 82.3; Potassium 3.6 mmol/L (3.5-5.1)
[2018-11-30] MEDS: LOSARTAN POTASSIUM 50 MG TAB PO SCH (20:30)
[2018-11-30] MEDS: MAGNESIUM OXIDE 400 MG TAB PO SCH (20:31)
[2018-11-30] MEDS: ATORVASTATIN 10 MG TAB PO SCH (20:31)
[2018-11-30] MEDS: CHOLECALCIFEROL 1,000 UNITS TAB PO SCH (20:31)
[2018-11-30] MEDS: MONTELUKAST SODIUM 10 MG TABLET PO SCH (20:31)
[2018-11-30] MEDS ORDERED: CARVEDILOL 6.25 MG TAB PO SCH (21:00)
[2018-11-30] MEDS: ALPRAZolam 0.25 MG TABLET PO PRN (23:35)
[2018-12-01] MEDS ORDERED: POTASSIUM CHLORIDE 20 MEQ TABCR PO STA (01:14)
--- NOTE | 2018-12-01 01:15 | Hospitalist Progress Note ---
Date of Service December 01, 2018 Subjective Made aware by RN of transient bradycardia 30s around 2 AM. Patient asymptomatic. Patient predominant heart rate during confinement 55 to 60s. AP Episodic bradycardia (asymptomatic) Decrease maintenance Coreg dose. Hold home Nifedipine. Will relay to AM provider. Results & Data Vital Signs (Past 12 Hours) Vital Signs Temp Pulse Pulse Resp BP BP Pulse Ox 11/30/18 23:40 81 11/30/18 23:11 36.4 C L 59 L 18 155/88 H 96 11/30/18 19:22 36.4 C L 64 18 148/74 H 95 11/30/18 16:00 51 L 11/30/18 15:20 36.8 C 53 L 18 174/63 H 98 11/30/18 14:50 60 17 159/81 H 97 11/30/18 14:20 56 L 18 192/72 H 97 11/30/18 13:43 96 Pulse Ox 11/30/18 23:40 11/30/18 23:11 11/30/18 19:22 11/30/18 16:00 11/30/18 15:20 98 11/30/18 14:50 11/30/18 14:20 11/30/18 13:43
[2018-12-01 01:42] LABS: Basophils # (auto) 0.06 K/uL (0-0.2); Basophils % (auto) 0.7 %; Eosinophils % (auto) 2.2 %; Hematocrit (blood only) 36.1 % (37-47); Hemoglobin 12.3 g/dL (12.0-16.0); Immature Granulocytes # (auto) 0.04 K/uL (0.00-0.02); Immature Granulocytes % (auto) 0.4 %; Lymphocytes # (auto) 1.99 K/uL (1.2-3.4); Lymphocytes % (auto) 22.3 %; Mean Corpuscular Hgb Conc 34.1 g/dL (32-36); Mean Corpuscular Volume 87.4 fL (80-100); Mean Platelet Volume 7.8 fL (7.4-10.4); Monocytes # (auto) 0.93 K/uL (0.11-0.59); Monocytes % (auto) 10.4 %; Neutrophils # (auto) 5.69 K/uL (1.4-6.5); Platelet Count 209 K/uL (130-400); RDW Coefficient of Variation 13.2 % (11.5-14.5); RDW Standard Deviation 42.3 fL (36.4-46.3); Red Blood Count 4.13 M/uL (4.2-5.4); White Blood Count 8.91 K/uL (4.8-10.8)
[2018-12-01 02:02] LABS: BUN Creatinine Ratio 12.1 (10-20); Calcium 8.5 mg/dl (8.5-10.1); Creatinine Clr Calc Pharmacy 67.4 ml/min; Est GFR (African American) 90.2; Est GFR (Non-African American) 77.8; Magnesium 1.4 mg/dl (1.8-2.4); Potassium 3.6 mmol/L (3.5-5.1)
[2018-12-01] MEDS: SODIUM CHLORIDE 0.9% 1000ML 1,000 ML IV SCH ×2 (03:22→19:51)
[2018-12-01] MEDS: LEVOTHYROXINE SODIUM 75 MCG TABLET PO SCH (06:00)
[2018-12-01] MEDS: CARVEDILOL 3.125 MG TAB PO SCH ×2 (08:22→20:45)
[2018-12-01] MEDS: MAGNESIUM OXIDE 400 MG TAB PO SCH ×2 (08:26→20:53)
[2018-12-01] MEDS: ALLOPURINOL 100 MG TAB PO SCH (08:26)
[2018-12-01] MEDS: MAGNESIUM SULFATE / D5W 1 GM/100 ML BAG IV SCH ×2 (08:27→10:04)
[2018-12-01] MEDS: INSULIN ASPART 100 UNITS/ML 3 ML PEN SC SCH ×4 (08:36→20:53)
[2018-12-01] MEDS ORDERED: ASPIRIN 325 MG ECTAB PO SCH (09:00)
--- NOTE | 2018-12-01 12:40 | Hospitalist Progress Note ---
Date of Service December 01, 2018 Assessment & Plan (1) Hyponatremia: Patient is a 73 yr female with H/O DM II, HTN, hyperlipidemia, anxiety, hypothyroidism and other medical problems listed below who presents with cough x 2 weeks as well as nausea and was found to have hyponatremia. Hypotonic hypovolemic hyponatremia In setting of HCTZ use, poor PO intake, diarrhea Sodium levels: 126>>>130 Hold HCTZ Continue IV fluids Monitor sodium levels (2) Cough: Likely due to allergic rhinitis CTA: No pulmonary emboli identified although segmental and subsegmental pulmonary arteries within the left lower lobe suboptimally assessed due to respiratory motion. Moderate cardiomegaly. Moderate coronary artery calcification. Chronic cough in setting of Hyponatremia, GI symptoms To R/O legionella Continue Singulair (3) Hypertension: HTN Sinus Bradycardia Asymptomatic BP elevated Continue Nicardipine, losartan Hold HCTZ due to hyponatremia Decrease Carvedilol due to bradycardia (4) Diabetes mellitus, type II: A1c unknown. Ordered -Hold home agents -SSI while in-patient -BSG AC HS (5) Hypothyroidism: TSH: normal Continue levothyroxine (6) CAD (coronary artery disease): Cardiac cath in January 2018 without evidence of obstructive disease Continue aspirin, carvedilol, statin (7) Anxiety: Alprazolam at bedtime as needed DVT Px: SQ Lovenox Code status: FULL Disposition: Plan to return home once medically stable. Subjective Patient is seen and examined at bedside States feeling better today Chronic dry cough which she attributes to allergies Appetite improved Sodium level slowly improving Denies any chest pain, shortness of breath, dizziness, abd pain, diarrhea Eager to get discharged Bradycardic overnight but asymptomatic Review of Systems Review of Systems: All systems reviewed & are unremarkable except as noted in HPI & below Physical Exam Physical Exam: Physical Exam: Vitals signs as noted above General Appearance:Moderately built and nourished, no apparent distress Head: normocephalic, Atraumatic Eyes: normal inspection, EOMI Neck: supple, Trachea midline Respiratory/Chest: Normal breath sounds, CTA Cardiovascular: S1, S2, No murmur, +Bradycardia Abdomen/GI:Soft, Non tender, Bowel sounds present Extremities/Musculoskelatal:normal inspection, no edema Neurologic/Psych:AAOX3, grossly no focal neurological deficits Skin: normal color, warm Results & Data Vital Signs (Past 12 Hours) Vital Signs Temp Pulse Resp BP Pulse Ox 12/01/18 11:19 36.5 C 53 L 20 164/63 H 96 12/01/18 07:15 36.7 C 64 20 159/84 H 96 12/01/18 04:08 36.7 C 59 L 18 146/69 H 95 Laboratory Results Short CBC 12/01/18 Range/Units 01:23 WBC 8.91 (4.8-10.8) K/uL Hgb 12.3 (12.0-16.0) g/dL Hct 36.1 L (37-47) % Plt Count 209 (130-400) K/uL BMP 11/30/18 12/01/18 12/01/18 18:58 01:23 07:58 Sodium 127 L 128 L 130 L Potassium 3.6 3.6 Chloride 89 L 92 L Carbon Dioxide 32 30 BUN 8 9 Creatinine 0.82 0.76 Glucose 143 H 156 H Calcium 9.1 8.5 Urine 11/30/18 Range/Units 12:45 Urine Color Yellow Urine Appearance Clear (Clear) Urine pH 7.5 (4.5-7.5) Ur Specific [place] 1.013 (1.000-1.030) Urine Protein Negative (Negative) Urine Glucose (UA) Negative (Negative)
[2018-12-01] MEDS ORDERED: NIFEdipine EXTENDED REL 30 MG TABCR PO SCH (14:00)
[2018-12-01] MEDS: ENOXAPARIN INJ 40 MG/0.4 ML SYR SQ SCH (16:51)
[2018-12-01] MEDS: ATORVASTATIN 10 MG TAB PO SCH (20:53)
[2018-12-01] MEDS: LOSARTAN POTASSIUM 50 MG TAB PO SCH (20:53)
[2018-12-01] MEDS: MONTELUKAST SODIUM 10 MG TABLET PO SCH (20:54)
[2018-12-01] MEDS: CHOLECALCIFEROL 1,000 UNITS TAB PO SCH (20:54)
[2018-12-01] MEDS: ALPRAZolam 0.25 MG TABLET PO PRN (23:21)
[2018-12-01] MEDS ORDERED: AMLODIPINE BESYLATE 5 MG TAB PO ONE (23:56)
--- NOTE | 2018-12-02 00:09 | Hospitalist Progress Note ---
Date of Service December 02, 2018 Subjective Made aware by RN of uncontrolled BP. SBP 1 40-1 80s. Episodic bradycardia, cardiac rate 30s. Patient asymptomatic as per RN. AP Hypertensive urgency Initiate Norvasc Continue low-dose Coreg, would not escalate dose further given bradycardic episodes. Will relay to AM provider. Results & Data Vital Signs (Past 12 Hours) Vital Signs Temp Pulse Pulse Resp BP Pulse Ox 12/01/18 23:27 37.0 C 56 L 18 177/72 H 93 12/01/18 23:20 56 L 12/01/18 20:52 49 L 172/62 H 12/01/18 19:36 36.5 C 54 L 18 181/71 H 99 12/01/18 16:00 47 L 12/01/18 15:38 36.3 C L 42 L 18 164/65 H 96
[2018-12-02] MEDS ORDERED: POTASSIUM CHLORIDE 20 MEQ TABCR PO STA (00:23)
[2018-12-02] MEDS ORDERED: MAGNESIUM SULFATE / D5W 1 GM/100 ML BAG IV ONE (00:24)
[2018-12-02] MEDS ORDERED: ATROPINE SULFATE 0.1 MG/ML 5ML SYR IV PRN (00:27)
[2018-12-02 00:56] LABS: BUN Creatinine Ratio 14.3 (10-20); Calcium 8.2 mg/dl (8.5-10.1); Creatinine Clr Calc Pharmacy 61.9 ml/min; Est GFR (African American) 81.1; Magnesium 2.1 mg/dl (1.8-2.4); Potassium 3.9 mmol/L (3.5-5.1)
[2018-12-02] MEDS: LEVOTHYROXINE SODIUM 75 MCG TABLET PO SCH (05:59)
[2018-12-02 06:21] LABS: Estimated Average Glucose 128 mg/dl; Hemoglobin A1C 6.1 % (4.5-5.6)
[2018-12-02] MEDS ORDERED: HydrALAZINE 10 MG TAB PO PRN (07:23)
[2018-12-02 08:09] LABS: Lyme Ab IgG w/WB Rflx Negative (Negative); Lyme Ab IgM w/WB Rflx Negative (Negative)
[2018-12-02] MEDS: MAGNESIUM OXIDE 400 MG TAB PO SCH (09:17)
[2018-12-02] MEDS: INSULIN ASPART 100 UNITS/ML 3 ML PEN SC SCH ×3 (09:18→17:15)
[2018-12-02] MEDS: ALLOPURINOL 100 MG TAB PO SCH (09:18)
[2018-12-02] MEDS ORDERED: AMLODIPINE BESYLATE 5 MG TAB PO SCH (09:45)
[2018-12-02] MEDS ORDERED: FUROSEMIDE 40 MG TAB PO SCH (10:15)
--- NOTE | 2018-12-02 10:21 | Consultation Report ---
DATE OF CONSULTATION: 12/02/2018 INPATIENT CARDIOLOGY CONSULTATION CONSULTATION REQUESTED BY: Dr. Doty. REASON FOR CONSULTATION: Uncontrolled hypertension with relative bradycardia. HISTORY OF PRESENT ILLNESS: Mrs. Prajapati is a very pleasant 73-year-old woman who is unknown to [facility], who presented to [facility] on 11/30/2018 with complaints of nausea and diarrhea. The patient has been having chronic cough and stomach upset, which her PCP has told her was allergies along with sinus drainage. However, on the , she noted that she had been very busy in the preceding days. She has had decreased oral intake and believe she ate some food that might have been spoiled as well. Upon presentation, she was found to be significantly hyponatremic. She was given IV fluids. Her hydrochlorothiazide was held and she was admitted to telemetry. Her symptoms slowly improved; however, in the early a.m. of 12/02/2018 was noted to be significantly hypertensive and she was given a low dose of amlodipine. Throughout all this, the patient denies any cardiac complaints. Specifically, denied any chest pain, shortness of breath, palpitations, lightheadedness, dizziness, or syncope. Currently, she states that her nausea is improved and she is feeling better. She is anxious to get home to her who she cares for due to his Alzheimer's disease and their young puppy. Of note, the patient follows with Dr. Wilder. She is not quite sure why. She states that she thinks she had a catheterization about a year ago and was told she does not need stents. She is not able to provide any further details. She does not believe she has had any stress test since the catheterization. PAST SURGICAL HISTORY: 1. Questionable cardiac catheterization. 2. Cholecystectomy. 3. Bilateral knee replacements. MEDICAL ILLNESSES: 1. Questionable coronary artery disease, but denies stent placement. 2. Anxiety. 3. Gout. 4. Hypertension. 5. Type 2 diabetes. 6. Hypothyroidism. 7. Hyperlipidemia. FAMILY HISTORY: Noncontributory. SOCIAL HISTORY: Denies any alcohol, tobacco or recreational drug use. 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 REVIEW OF SYSTEMS: As per HPI, all other review of systems reviewed and negative at this time. ALLERGIES: 1. KVNG INHIBITOR. 2. PENICILLIN. 3. PREDNISONE. MEDICATIONS AN OUTPATIENT: 1. Aspirin 325 mg q. 48 hours. 2. Atorvastatin 10 mg daily. 3. Carvedilol 6.25 mg b.i.d. 4. Hydrochlorothiazide 25 mg daily. 5. Losartan 100 mg at bedtime. 6. Nifedipine 30 mg p.o. daily at 1400. 7. Ranitidine. 8. Metformin. 9. Magnesium oxide. 10. Levoxyl. 11. Insulin. 12. Allopurinol. 13. Alprazolam. PHYSICAL EXAMINATION: VITAL SIGNS: Temperature 36.5, pulse 89, respiratory rate 12, blood pressure 163/77. GENERAL: Awake, alert, oriented x3, no acute distress. Some confusion noted. HEENT: Normocephalic, atraumatic. Pupils equal, round, reactive to light and accommodation. Extraocular muscles intact. Anicteric sclerae. Moist mucous membranes. NECK: No JVD, no bruit. CARDIOVASCULAR: Regular. Positive S4. Normal S1 and S2. No S3. 2/6 mid to late systolic ejection murmur greatest at the right sternal border second intercostal space. No rubs. PULMONARY: Clear to auscultation bilaterally. No rales, rhonchi, or wheezing. ABDOMEN: Bowel sounds x4, soft. No rebound, guarding, tenderness. No organomegaly. EXTREMITIES: No clubbing, cyanosis or edema. +2 pedal pulses bilaterally. SKIN: Warm and dry. TEST RESULTS: A 12-lead EKG performed in the Emergency Department, upon presentation, shows sinus bradycardia with occasional PACs at 58 beats per minute, incomplete right bundle-branch block, septal infarct pattern, poor R-wave progression across the precordium, LVH criteria. No previous studies available for comparison. LABORATORY STUDIES OF SIGNIFICANCE: From today, sodium 127, potassium 3.9, BUN 12, creatinine 0.8, magnesium 2.1. Review of telemetry monitoring shows sinus bradycardia while sleeping. Otherwise, no significant bradyarrhythmias, no significant pauses. IMPRESSION: 1. Hypertension, uncontrolled. 2. Hyponatremia, not significantly improving. 3. Questionable history of coronary artery disease. RECOMMENDATIONS: It was my pleasure to see Mrs. Prajapati in consultation today. From a cardiac standpoint, I believe the most prudent course of action will be tried to get her blood pressure under better control at this time, so to that end, she has responded well to low-dose amlodipine and I will give her an additional 5 mg p.o. x1 now. We will restart her carvedilol at a lower dose of 3.125 mg b.i.d. Obviously, her hydrochlorothiazide will not be restarted given her hyponatremia, but she will continue her current dose of losartan. Her afternoon short-acting dose of nifedipine is quite puzzling and do not believe it is beneficial at this point and that will be discontinued. Otherwise, an echocardiogram will be performed and reviewed, and given her lack of symptoms, no further testing is necessary. It is okay to discharge the patient to home once her blood pressure is under control.
--- NOTE | 2018-12-02 15:01 | Hospitalist Progress Note ---
Date of Service December 02, 2018 Assessment & Plan (1) Hyponatremia: Patient is a 73 yr female with H/O DM II, HTN, hyperlipidemia, anxiety, hypothyroidism and other medical problems listed below who presents with cough x 2 weeks as well as nausea and was found to have hyponatremia. 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 Moderate cardiomegaly. Moderate coronary artery calcification. Chronic cough in setting of Hyponatremia, GI symptoms To R/O legionella:Serological test is pending Continue Singulair (3) Hypertension: HTN Sinus Bradycardia Asymptomatic BP elevated Continue losartan 100mg daily Started on Amlodipine 5mg daily HCTZ, Nifedipine are discontinued Decrease Carvedilol dose to 3.125 mg BID due to bradycardia Appreciate Cardiology Input (4) Diabetes mellitus, type II: A1c:6.1 Hold home agents SSI while in-patient BSG AC HS (5) Hypothyroidism: TSH: normal Continue levothyroxine (6) CAD (coronary artery disease): Cardiac cath in January 2018 without evidence of obstructive disease Continue aspirin, carvedilol, statin (7) Anxiety: Alprazolam at bedtime as needed DVT Px: SQ Lovenox Code status: FULL Disposition: Plan to return home with Home [facility] Patient is seen and examined at bedside Doing better No new complaints Chronic dry cough which she attributes to allergies Appetite improved Sodium levels stable Denies any chest pain, shortness of breath, dizziness, abd pain, diarrhea Discussed with today Discussed with patient's daughter in detail Review of Systems Review of Systems: All systems reviewed & are unremarkable except as noted in HPI & below Physical Exam Physical Exam: Physical Exam: Vitals signs as noted above General Appearance:Moderately built and nourished, no apparent distress Head: normocephalic, Atraumatic Eyes: normal inspection, EOMI Neck: supple, Trachea midline Respiratory/Chest: Normal breath sounds, CTA Cardiovascular: S1, S2, No murmur Abdomen/GI:Soft, Non tender, Bowel sounds present Extremities/Musculoskelatal:normal inspection, no edema Neurologic/Psych:AAOX3, grossly no focal neurological deficits Skin: normal color, warm Results & Data Vital Signs (Past 12 Hours) Vital Signs Temp Pulse Pulse Resp BP Pulse Ox 12/02/18 11:20 36.7 C 56 L 20 170/69 H 96 12/02/18 09:15 89 163/77 H 12/02/18 07:10 36.5 C 48 L 20 180/82 H 98 12/02/18 07:00 44 L 12/02/18 04:33 36.8 C 53 L 18 159/66 H 97 Laboratory Results BMP 12/01/18 12/01/18 12/02/18 15:59 20:09 00:28 Sodium 128 L 128 L 127 L Potassium 3.9 Chloride 94 L Carbon Dioxide 28 BUN 12 Creatinine 0.83 Glucose 145 H Calcium 8.2 L
--- NOTE | 2018-12-02 15:20 | Discharge Summary ---
Date of Service December 02, 2018 Admission HPI Per Admitting Provider This is a 73-year-old female with a PMH of type 2 diabetes, hypertension, hyperlipidemia, anxiety, hypothyroidism and other medical problems listed below who presents with cough x 2 weeks. Patient has had cough with occasional clear productive sputum for the last few weeks. Saw PCP about this, who attributed symptoms to allergies. In the last week, patient has had nausea in the morning and a few days of diarrhea following eating food that had been sitting in the car for a few hours. Diarrhea has slowly been subsiding. Endorses poor PO intake for the past few weeks. Daughter at bedside notes that patient seems a bit more confused than normal. Denies any vomiting or abdominal pain. No fever, chills, wheezing or hemoptysis. Patient was directed by PCP to come in the ED today for further evaluation of pneumonia. Hemodynamically stable. No acute cardiopulmonary findings on chest x-ray. No evidence of PE on chest CTA. Sodium found to be 126. Admission Exam Per Admitting Provider General Appearance: WD/WN, no apparent distress, resting comfortably Head: normocephalic, atraumatic Eyes: normal inspection, PERRL, EOMI ENT: hearing grossly normal, pharynx normal (dry mucous membranes, cobblestoning of posterior throat) Neck: supple, no JVD, no adenopathy Respiratory/Chest: lungs clear to auscultation. No wheezes, rales or rhonci. No respiratory distress or accessory muscle use Cardiovascular: regular rate, rhythm, no murmur, normal peripheral pulses Abdomen/GI: normal bowel sounds, soft, non-tender to palpation Extremities/Musculoskelatal: normal inspection, no calf tenderness, normal capillary refill, no pedal edema Neurologic/Psych: alert, normal mood/affect, oriented x 3 Skin: normal color, warm/dry, ecchymosis on R dorsum of hand Principal Diagnosis Discharge Information Discharge Diagnosis Hyponatremia Uncontrolled Hypertension Discharge Goals Decrease discomfort,Improve disease control, Improve function Discharge Activity Limitations Resume your previous activity Discharge Data Allergies Allergy/AdvReac Type Severity Reaction Status Date / Time KVNG Inhibitors Allergy Unknown UNKNOWN Verified 11/30/18 11:25 Penicillins Allergy Unknown . Verified 11/30/18 11:25 prednisone Allergy Unknown UNKNOWN Verified 11/30/18 11:25 Consultations 11/30/18 13:23 ED Decision to Admit Stat 12/02/18 07:24 Consult Nephrology Routine 12/02/18 07:50 Consult Cardiology Routine Procedures Performed CTA: 1. No pulmonary emboli identified although segmental and subsegmental pulmonary arteries within the left lower lobe suboptimally assessed due to respiratory motion. 2. Moderate cardiomegaly. Moderate coronary artery calcification. Ordered Studies 11/30/18 11:16 CT angio chest PE protocol Stat Hospital Course (1) Hyponatremia: Patient is a 73 yr female with H/O DM II, HTN, hyperlipidemia, anxiety, hypothyroidism and other medical problems listed below who presents with cough x 2 weeks as well as nausea and was found to have hyponatremia. 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 Moderate cardiomegaly. Moderate coronary artery calcification. Chronic cough in setting of Hyponatremia, GI symptoms To R/O legionella:Serological test is pending Continue Singulair (3) Hypertension: HTN Sinus Bradycardia Asymptomatic BP elevated Continue losartan 100mg daily Started on Amlodipine 5mg daily HCTZ, Nifedipine are discontinued Decrease Carvedilol dose to 3.125 mg BID due to bradycardia Appreciate Cardiology Input (4) Diabetes mellitus, type II: A1c:6.1 Hold home agents SSI while in-patient BSG AC HS (5) Hypothyroidism: TSH: normal Continue levothyroxine (6) CAD (coronary artery disease): Cardiac cath in January 2018 without evidence of obstructive disease Continue aspirin, carvedilol, statin (7) Anxiety: Alprazolam at bedtime as needed DVT Px: SQ Lovenox Code status: FULL Disposition: Plan to return home with Home Health Total Time Total Time Spent Total Time Spent (In Minutes): 39 minutes Total Time Includes: Examination of the Patient, Discharge Planning, Medication Reconciliation, Communication With Other Providers and Other Discharge Plan Discharge Items Patient Disposition: Home - Home Health Services Reason For Visit: HYPONATREMIA Discharge Diagnosis: Hyponatremia Uncontrolled Hypertension Discharge Goals: Decrease discomfort, Improve disease control and Improve function Activity: Resume your previous activity Exercise/Sports: Gradually increase as tolerated Non-emergency contact: Primary Care Provider and Painting Manager Call non-emergency contact if: you have any medication questions, your symptoms worsen, your pain is not controlled, your pain is worsening, your pain is unusual for you, your pain is concerning for you and you have a fever Follow-up/Referrals: Logan Vogel [Primary Care Provider] - Diet: Carb Consistent or DM2 Fluids: 1500ml (6 cups) Other Ambulatory Orders: Basic Metabolic Panel (Routine) Timeframe: 20181206 Location: Determined by Patient Ordered By: Nile Felton Provider Instructions: Follow up with your Primary Care Physician in 1 week Follow up with your Painting Manager On December 06, 2018 at 11:00AM Get blood test (Basic Metabolic Panel ) on December 06, 2018 and follow up with for further recommendations Continue daily oral fluid restriction at 1.5 liters per day for now. Further recommendations as per Your Serological work for Legionella is currently pending. Follow up with your Physician for results . Further work up for weight loss as per your Primary Care physician as outpatient Seek immediate medical attention if your symptoms reoccur or worsen Prescriptions: New amlodipine [Norvasc] 5 mg Tablet 5 mg PO QAM Qty: 30 RF: 1 carvedilol 3.125 mg Tablet 3.125 mg PO BID 30 Days Qty: 60 RF: 1 furosemide 40 mg Tablet 40 mg PO QAM 30 Days Qty: 30 RF: 0 Continued metformin 500 mg tablet 500 mg PO BID RF: 0 atorvastatin 10 mg tablet 10 mg PO QPM RF: 0 aspirin 325 mg Tablet 325 mg PO Q2D RF: 0 ranitidine HCl 300 mg tablet 300 mg PO QAM RF: 0 allopurinol 100 mg tablet 100 mg PO DAILY RF: 0 levothyroxine 75 mcg tablet 75 mcg PO DAILY RF: 0 alprazolam 0.25 mg tablet 0.25 mg PO QID PRN (Reason: Sleep) RF: 0 montelukast 10 mg tablet 10 mg PO HS RF: 0 losartan 100 mg tablet 100 mg PO HS RF: 0 cholecalciferol (vitamin D3) 1,000 unit Tablet 1,000 unit PO QPM RF: 0 Basaglar KwikPen U-100 Insulin 100 unit/mL (3 mL) insulin pen 25 unit subcut HS RF: 0 magnesium oxide 400 mg magnesium Tablet 400 mg PO BID RF: 0 Discontinued nifedipine 30 mg tablet extended release 24hr 30 mg PO DAILY@1400 RF: 0 carvedilol 6.25 mg tablet 6.25 mg PO BID RF: 0 hydrochlorothiazide 25 mg tablet 25 mg PO DAILY RF: 0 Stand-Alone Forms: [facility] Discharge Orders: Discharge Order (Routine); Ordered 12/02/18 Ordered By: Nile Lane Admission Data Admit Date/Time: 11/30/18 14:18 Attending Provider: Nile Lane Admit Provider: Mayela Da Silva Primary Care Provider: Logan Vogel Other Providers: Mayela Da Silva ; Tristian Lu ; Jarek Bell Service: Telemetry Medical Other Interventions: Discharge Summary Assessment (RN) Last Done: 12/02/18 15:58 Pending Studies at Discharge: Yes Studies:: Serological Work up for Legionella
[2018-12-02] MEDS: ENOXAPARIN INJ 40 MG/0.4 ML SYR SQ SCH (17:14)
--- NOTE | 2018-12-02 20:11 | Nephrology Consultation ---
Date of Consultation December 02, 2018 Assessment & Plan (1) Hyponatremia: Patient with hypo-osmolar hyponatremia likely due to SIADH. She has cough and nausea both potential triggers for ADH release. her Serum osm is 257 and urine osm 166. Discussed pathophysiology of hyponatremia -Do not restart HCTz -Continue fluid restriction of 1500ml daily. Patient should continue same even at home -Start lasix 40mg po daily. -If discharged can follow up with me this sunday. Repeat BMP on (2) Hypertension: BP is above target in setting of stopping HCTz. Cardiology added amlodipine. She is starting lasix. BP is improving. She should monitor BP at h ome if discharged. We also discussed need to monitor salt intake. History of Present Illness Reason for Consultation: hyponatremia Requesting Physician: Domingo Dowd MD Attending Physician: Nile Lane MD History of Present Illness This is a 73-year-old female with a PMH of type 2 diabetes, hypertension, hyperlipidemia, anxiety, hypothyroidism who was admitted on 11/30 with cough x 2 weeks. Patient has had cough with occasional clear productive sputum for the last few weeks. Saw PCP about this, who attributed symptoms to allergies. In the last week, patient has had nausea in the morning and a few days of diarrhea following eating food that had been sitting in the car for a few hours. Diarrhea has slowly been subsiding. Endorses poor PO intake for the past few weeks. She was found to have Na of 126 and today Na is 127 despite fluid restriction. I have been asked to evaluate her for etiology and management of hyponatremia. She feels better now, denies any SOB, nausea or diarrhoea. Still mild cough. She reports orthopnea and sleeps in a recliner. She wants to go home and take care of who has dementia Allergies Allergy/AdvReac Type Severity Reaction Status Date / Time KVNG Inhibitors Allergy Unknown UNKNOWN Verified 11/30/18 11:25 Penicillins Allergy Unknown . Verified 11/30/18 11:25 prednisone Allergy Unknown UNKNOWN Verified 11/30/18 11:25 Home Medications Home Medications Medication Instructions Recorded Confirmed Type Basaglar KwikPen U-100 Insulin 25 unit SUBCUT HS 11/30/18 11/30/18 History allopurinol 100 mg PO DAILY 11/30/18 11/30/18 History alprazolam 0.25 mg PO QID PRN 11/30/18 11/30/18 History aspirin 325 mg PO Q2D 11/30/18 11/30/18 History atorvastatin 10 mg PO QPM 11/30/18 11/30/18 History cholecalciferol (vitamin D3) 1,000 unit PO QPM 11/30/18 11/30/18 History levothyroxine 75 mcg PO DAILY 11/30/18 11/30/18 History losartan 100 mg PO HS 11/30/18 11/30/18 History magnesium oxide 400 mg PO BID 11/30/18 11/30/18 History metformin 500 mg PO BID 11/30/18 11/30/18 History montelukast 10 mg PO HS 11/30/18 11/30/18 History ranitidine HCl 300 mg PO QAM 11/30/18 11/30/18 History amlodipine [Norvasc] 5 mg PO QAM #30 tab 12/02/18 Rx carvedilol 3.125 mg PO BID 30 Days #60 tab 12/02/18 Rx furosemide 40 mg PO QAM 30 Days #30 tab 12/02/18 Rx Patient History Medical History CAD (coronary artery disease) (Chronic) Anxiety (Chronic) Gout (Chronic) HLD (hyperlipidemia) (Chronic) Hypothyroidism (Chronic) Diabetes mellitus, type II (Chronic) Hypertension (Chronic) Surgical History History of bilateral knee replacement (Chronic) History of cholecystectomy (Chronic) Family History Other Heart disease Stomach cancer Social History Preferred Language: Belarusian Communication Ability: Effective Hand Roller 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 Required: No Beliefs That Will Affect Care: None Current Living Situation: Spouse Other Information That Helps Us Care for You: No Feels Safe at Home: Yes Safety Concerns: Feels Safe At This Time Smoking Status: Never smoker Do You Dip or Chew Tobacco: No Second Hand Exposure: No Tobacco Cessation Education Requested by Patient: No Hx Alcohol Use: Yes Alcohol type: wine Hx Substance Use: No Review of Systems Review of Systems: All systems reviewed & are unremarkable except as noted in HPI & below Physical Exam Physical Exam: General exam: Appears comfortable, no acute distress HEENT: Pupils are equal and reactive to light Neck: No JVD, neck is supple trachea is midline Respiratory system: Clear breath sounds bilaterally. Gastrointestinal: Abdomen is soft, non distended, non tender, bowel sounds are present CVS: Regular rate and rhythm. No murmurs, rubs or gallops Musculoskeletal: No joint or muscle tenderness Extremities: Non tender, no edema, peripheral pulses are present Neuro: Oriented, no tremors, no focal neurological deficits Skin: No rashes Results & Data Vital Signs (Past 12 Hours) Vital Signs Temp Pulse Resp BP Pulse Ox 12/02/18 15:58 36.7 C 60 20 178/79 H 98 12/02/18 15:05 36.7 C 60 20 178/79 H 98 12/02/18 11:20 36.7 C 56 L 20 170/69 H 96 12/02/18 09:15 89 163/77 H Laboratory Results Laboratory Results - last 24 hr 12/01/18 12/01/18 12/01/18 01:23 20:02 20:09 Sodium 128 L Potassium Chloride Carbon Dioxide Anion Gap BUN Creatinine Est Cr Clr Drug Dosing Est GFR ( Amer) Est GFR (Non-Af Amer) BUN/Creatinine Ratio Glucose POC Glucose 197 H Estimat Average Glucose 128 Hemoglobin A1c 6.1 H Calcium Magnesium Lyme Disease IgG Ab Lyme Disease IgM Ab 12/02/18 12/02/18 12/02/18 00:28 05:48 07:38 Sodium 127 L Potassium 3.9 Chloride 94 L Carbon Dioxide 28 Anion Gap 5.0 BUN 12 Creatinine 0.83 Est Cr Clr Drug Dosing 61.9 Est GFR ( Amer) 81.1 Est GFR (Non-Af Amer) 70.0 BUN/Creatinine Ratio 14.3 Glucose 145 H POC Glucose 150 H Estimat Average Glucose Hemoglobin A1c Calcium 8.2 L Magnesium 2.1 Lyme Disease IgG Ab Negative Lyme Disease IgM Ab Negative 12/02/18 12/02/18 11:35 16:50 Sodium Potassium Chloride Carbon Dioxide Anion Gap BUN Creatinine Est Cr Clr Drug Dosing Est GFR ( Amer) Est GFR (Non-Af Amer) BUN/Creatinine Ratio Glucose POC Glucose 159 H 146 H Estimat Average Glucose Hemoglobin A1c Calcium Magnesium Lyme Disease IgG Ab Lyme Disease IgM Ab
[2018-12-03] MEDS ORDERED: AMLODIPINE BESYLATE 5 MG TAB PO SCH (09:00)
== END 2018-12-02 18:00 | disposition home health service (06) | DRG 645 ==
LOC: ED 10:54 → 2N 14:18

== ENCOUNTER 2023-12-18 11:36 | Inpatient (IN) ==
--- NOTE | 2023-12-18 12:40 | Emergency Department Note ---
Impression & Plan Altered mental status, Hyponatremia ED Provider Note ED Provider Note NAME: DILEEP GALINDO AGE:78 SEX: Female : 1945 ARRIVES VIA: Private vehicle INFORMANT: Patient ED PROVIDER(s): Areli Howard DO CHIEF COMPLAINT: Confusion HPI: This is a 70-year-old female presents from home with family bedside due to concern for confusion which began yesterday. Patient states she has trouble doing things around the house that she typically can routinely do with these. Patient does live alone. Family concern for possible urinary tract infection or electrolyte abnormality. They states she does see a laser specialist in the [facility] for low sodium. No recent change in diet or medications. No recent illness. No fevers or chills. Patient denies any pain including headache. She denies any difficulty walking. No recent change in bowel or bladder function. PAST MEDICAL HISTORY:See Below PAST SURGICAL HISTORY:See Below FAMILY HISTORY:See Below SOCIAL HISTORY:See Below HOME MEDICATIONS:See Below ALLERGIES:See Below VITALS:See Below PHYSICAL EXAMINATION: GENERAL: alert, well appearing, well nourished, no distress, non-toxic EYE EXAM: normal conjunctiva, PERRL and EOM's grossly intact OROPHARYNX: no exudate, no erythema, lips, buccal mucosa, and tongue normal and mucous membranes are moist NECK: supple, no nuchal rigidity, no adenopathy, non-tender LUNGS: Clear to auscultation. Normal chest wall mechanics, no w/r/r HEART: no murmurs, S1 normal and S2 normal ABDOMEN: abdomen soft, non-tender, normo-active bowel sounds, no masses, no rebound or guarding. BACK: Back is symmetrical on inspection and there is no deformity, no midline tenderness, no CVA tenderness. SKIN: no rashes, petechiae, orbruising UPPER EXTREMITIES: upper extremities are grossly normal. FROM, nml pulses b/l. LOWER EXTREMITIES: No pitting edema. FROM, nml pulses b/l. NEURO EXAM: Patient oriented and appropriate at bedside, cranial nerves II-XII grossly intact, normal speech, no facial droop,nogross weakness of arms, no gross weakness of legs. Gross sensation intact. No ataxia. Vital Signs: reviewed and remarkable Differential Diagnosis: CVA, ICH, dehydration, electrolyte abnormality, UTI, pneumonia, viral syndrome, medication ADR, dementia, as well as others were considered MEDICAL DECISION MAKING: This is a 78-year-old female who presents with family bedside due to concern for confusion. She was afebrile vital signs stable. Labs drawn and sent, IV established, EKG and chest x-ray performed bedside interpreted me and patient monitored on telemetry. Patient started on gentle IV fluids. Urine collected and sent additionally. No evidence of significant electrolyte abnormality although she was mildly hyponatremic however this appeared similar to prior. No evidence of UTI. CT head reassuring. Lyme screen negative additionally. Patient had a nonfocal neurologic exam at bedside. Due to unclear etiology and persistent symptoms of confusion, case discussed with the hospitalist team for additional evaluation at bedside. Consultation(s): 1503: Discussed with Isiah Yo hospitalist team, for additional evaluation and management. ER Treatment Provided: See below Diagnostics Interpreted By Me: -ECG: Paced at 64, leftward axis, normal QRS and QTc, nonspecific ST/T wave changes -Cardiac Monitoring: An order was placed for continuous cardiac monitoring. The monitor shows a rate of 60 with paced rhythm. -Laboratory studies: As stated above and show below. -Imaging studies: X-ray Chest: A single view study of the chest was reviewed and was negative for cardiomegaly, focal infiltrate, effusion, pulmonary edema, or wide mediastinum. Triage Nursing Note Reviewed Prior/Outside Records Reviewed Past Med/Surg History Problem List (Updated 12/20/23 @ 19:24 by Areli Howard, DO) Hyponatremia (Acute) Vascular dementia with delirium Atherosclerotic cerebrovascular disease Hypomagnesemia Delirium Altered mental status (Acute) Renal mass CAD (coronary artery disease) (Chronic) Anxiety (Chronic) Gout (Chronic) HLD (hyperlipidemia) (Chronic) Hypothyroidism (Chronic) Diabetes mellitus, type II (Chronic) Hyponatremia (Acute) Cough (Acute) Hypertension (Chronic) Surgical History History of cholecystectomy History of bilateral knee replacement Family History Other Heart disease Stomach cancer Social History Smoking Status: Never smoker Second Hand Exposure: No; Do You Dip or Chew Tobacco: No; Hx Alcohol Use: No Hx Substance Use: No Preferred Language: Yakut Communication Ability: Effective Telescope Operator Required: No Beliefs That Will Affect Care: None Current Living Situation: Alone Current Living Situation Comment: live in an apartment ground floor Feels Safe at Home: No Is there a partner from a previous relationship who is making you feel unsafe now?: No Safety Concerns: Feels Safe At This Time Assistive Devices: Cane Allergies Allergies Allergy/AdvReac Type Severity Reaction Status Date / Time KVNG Inhibitors Allergy Unknown UNKNOWN Verified 12/18/23 16:29 Penicillins Allergy Unknown . Verified 12/18/23 16:29 prednisone Allergy Unknown UNKNOWN Verified 12/18/23 16:29 Home Meds Home Medications Medication Instructions Recorded Confirmed atorvastatin 10 mg tablet 10 mg PO QPM 11/30/18 12/18/23 cholecalciferol (vitamin D3) 25 1,000 unit PO QAM 11/30/18 12/18/23 mcg (1,000 unit) tablet insulin glargine 100 unit/mL (3 12 unit subcut 11/30/18 12/18/23 mL) subcutaneous pen (Basaglar KwikPen U-100 Insulin) levothyroxine 75 mcg tablet 75 mcg PO DAILYBB 11/30/18 12/18/23 losartan 100 mg tablet 100 mg PO 11/30/18 12/18/23 magnesium oxide 400 mg PO TID 11/30/18 12/18/23 Lactobacillus acidophilus 10 10,000 mmu cells PO QAM 12/18/23 12/18/23 billion cell capsule (Probiotic) apixaban 5 mg tablet (Eliquis) 5 mg PO BID 12/18/23 12/18/23 cranberry 500 mg capsule 500 mg PO QAM 12/18/23 12/18/23 cyanocobalamin (vitamin B-12) 1,000 mcg PO DAILY 12/18/23 12/18/23 1,000 mcg tablet (Vitamin B-12) famotidine 20 mg tablet 20 mg PO BID 12/18/23 12/18/23 levetiracetam 500 mg tablet 500 mg PO BID 12/18/23 12/18/23 melatonin 3 mg tablet 6 mg PO HS 12/18/23 12/18/23 metformin 1,000 mg tablet 1,000 mg PO BID 12/18/23 12/18/23 multivitamin (Daily-Josee tablet) 1 tab PO QAM 12/18/23 12/18/23 sodium chloride 1,000 mg soluble 1,000 mg PO TID 12/18/23 12/18/23 tablet tolterodine 4 mg capsule,extended 4 mg PO PM 12/18/23 12/18/23 release 24 hr vitamin A-vitamin C-vit E-min 1 tab PO QAM 12/18/23 12/18/23 tablet Previous Rx's Medication Instructions Recorded amlodipine 5 mg tablet (Norvasc) 5 mg PO QAM #30 tabs 12/02/18 Results & Data (ED) Vital Signs Vital Signs - 24 hr 12/18/23 11:53 12/18/23 12:07 12/18/23 12:11 Temperature 36.3 C L Temperature Source Temporal Artery Scan Pulse Rate 60 61 Pulse Rate from SpO2 Sensor Respiratory Rate 20 Blood Pressure 168/78 H 182/89 H Blood Pressure Mean 108 112 Pulse Oximetry 97 Sepsis Recent Fever Within 48 Hours No Sepsis New/Unexplained Change in Mental Status N/A Sepsis Action Taken by Nursing No Action Required 12/18/23 12:12 12/18/23 12:15 12/18/23 12:15 Temperature Temperature Source Pulse Rate 60 Pulse Rate from SpO2 Sensor 62 Respiratory Rate 21 Blood Pressure 175/97 H 175/97 H Blood Pressure Mean 129 129 Pulse Oximetry 93 Sepsis Recent Fever Within 48 Hours Sepsis New/Unexplained Change in Mental Status Sepsis Action Taken by Nursing 12/18/23 12:57 12/18/23 13:00 12/18/23 13:00 Temperature Temperature Source Pulse Rate 64 Pulse Rate from SpO2 Sensor 62 Respiratory Rate 24 Blood Pressure 168/79 H 168/79 H Blood Pressure Mean 131 131 Pulse Oximetry 95 Sepsis Recent Fever Within 48 Hours Sepsis New/Unexplained Change in Mental Status Sepsis Action Taken by Nursing 12/18/23 13:06 12/18/23 13:12 12/18/23 13:15 Temperature Temperature Source Pulse Rate 65 68 Pulse Rate from SpO2 Sensor 60 61 Respiratory Rate 24 24 Blood Pressure 149/98 H Blood Pressure Mean 117 Pulse Oximetry 96 95 Sepsis Recent Fever Within 48 Hours Sepsis New/Unexplained Change in Mental Status Sepsis Action Taken by Nursing 12/18/23 13:15 12/18/23 13:24 12/18/23 13:30 Temperature Temperature Source Pulse Rate 64 Pulse Rate from SpO2 Sensor 61 Respiratory Rate 20 Blood Pressure 149/98 H 167/85 H Blood Pressure Mean 117 125 Pulse Oximetry 96 Sepsis Recent Fever Within 48 Hours Sepsis New/Unexplained Change in Mental Status Sepsis Action Taken by Nursing 12/18/23 13:30 12/18/23 13:30 12/18/23 13:30 Temperature Temperature Source Pulse Rate Pulse Rate from SpO2 Sensor Respiratory Rate Blood Pressure 167/85 H 167/85 H 167/85 H Blood Pressure Mean 125 125 125 Pulse Oximetry Sepsis Recent Fever Within 48 Hours Sepsis New/Unexplained Change in Mental Status Sepsis Action Taken by Nursing 12/18/23 13:33 12/18/23 13:39 12/18/23 13:45 Temperature Temperature Source Pulse Rate 64 62 Pulse Rate from SpO2 Sensor 65 61 Respiratory Rate 20 19 Blood Pressure 186/84 H Blood Pressure Mean 119 Pulse Oximetry 94 94 Sepsis Recent Fever Within 48 Hours Sepsis New/Unexplained Change in Mental Status Sepsis Action Taken by Nursing 12/18/23 13:45 12/18/23 13:48 12/18/23 14:01 Temperature Temperature Source Pulse Rate 60 Pulse Rate from SpO2 Sensor 60 Respiratory Rate 22 Blood Pressure 186/84 H 168/82 H Blood Pressure Mean 119 125 Pulse Oximetry 93 Sepsis Recent Fever Within 48 Hours Sepsis New/Unexplained Change in Mental Status Sepsis Action Taken by Nursing 12/18/23 14:06 12/18/23 14:15 12/18/23 14:15 Temperature Temperature Source Pulse Rate 61 60 Pulse Rate from SpO2 Sensor 61 60 Respiratory Rate 20 20 Blood Pressure 181/84 H Blood Pressure Mean 134 Pulse Oximetry 96 95 Sepsis Recent Fever Within 48 Hours Sepsis New/Unexplained Change in Mental Status Sepsis Action Taken by Nursing 12/18/23 14:15 12/18/23 14:15 12/18/23 14:27 Temperature Temperature Source Pulse Rate 61 Pulse Rate from SpO2 Sensor 61 Respiratory Rate 16 Blood Pressure 181/84 H 181/84 H Blood Pressure Mean 134 134 Pulse Oximetry 97 Sepsis Recent Fever Within 48 Hours Sepsis New/Unexplained Change in Mental Status Sepsis Action Taken by Nursing 12/18/23 14:30 12/18/23 14:30 12/18/23 14:30 Temperature Temperature Source Pulse Rate Pulse Rate from SpO2 Sensor Respiratory Rate Blood Pressure 182/87 H 182/87 H 182/87 H Blood Pressure Mean 145 145 145 Pulse Oximetry Sepsis Recent Fever Within 48 Hours Sepsis New/Unexplained Change in Mental Status Sepsis Action Taken by Nursing 12/18/23 14:30 12/18/23 14:33 Temperature Temperature Source Pulse Rate 60 Pulse Rate from SpO2 Sensor 61 Respiratory Rate 23 Blood Pressure 182/87 H Blood Pressure Mean 145 Pulse Oximetry 97 Sepsis Recent Fever Within 48 Hours Sepsis New/Unexplained Change in Mental Status Sepsis Action Taken by Nursing Laboratory Data 12/19/23 06:38 12/20/23 05:53 Lab Results 12/18/23 12/18/23 Range/Units 12:04 13:04 WBC 7.49 (4.8-10.8) K/ul RBC 4.42 (4.20-5.40) M/uL Hgb 13.1 (12.0-16.0) g/dl Hct 39.6 (37.0-47.0) % MCV 89.6 (80.0-100.0) fL MCH 29.6 (25.0-34.0) pg MCHC 33.1 (32.0-36.0) g/dL RDW Std Deviation 43.5 (36.4-46.3) fL RDW Coeff of Carly 13.2 (11.5-14.5) % Plt Count 250 (130-400) K/uL MPV 8.1 L (9.4-12.4) fL Immature Gran % (Auto) 0.4 % Neut % (Auto) 73.2 % Lymph % (Auto) 13.6 % [place] % (Auto) 10.5 % Eos % (Auto) 1.6 % Baso % (Auto) 0.7 % Neut # (Auto) 5.48 (1.40-6.50) K/uL Lymph # (Auto) 1.02 L (1.20-3.40) K/uL [place] # (Auto) 0.79 H (0.11-0.59) K/uL Eos # (Auto) 0.12 (0.00-0.50) K/uL Baso # (Auto) 0.05 (0.00-0.20) K/uL Immature Gran # (Auto) 0.03 (0.01-0.20) K/uL PT 11.4 (9.0-12.0) Seconds INR 1.1 (0.9-1.1) Sodium 132 L (136-145) mmol/L Potassium 4.0 (3.5-5.1) mmol/L Chloride 95 L (98-107) mmol/L Carbon Dioxide 28 (21-32) mmol/L Anion Gap 9 (3-11) BUN 12 (6-23) mg/dl Creatinine 0.78 (0.6-1.2) mg/dl Est Cr Clr Drug Dosing 60.3 ml/min Est GFR ( Amer) 84.4 ml/min Est GFR (Non-Af Amer) 72.8 ml/min BUN/Creatinine Ratio 15.4 (10-20) Glucose 190 H (70-99(Fasting)) mg/dl Calcium 9.7 (8.6-10.3) mg/dl Magnesium 1.4 L (1.7-2.4) mg/dl Total Bilirubin 0.7 (0.2-1.0) mg/dl AST 17 (13-39) U/L ALT 8 (7-52) U/L Alkaline Phosphatase 98 (34-104) U/L Troponin I High Sens 6.4 (0-14) pg/ml Total Protein 7.3 (6.0-8.3) gm/dl Albumin 4.2 (3.4-5.0) gm/dl Globulin 3.1 (2.5-4.0) gm/dl Albumin/Globulin Ratio 1.4 (0.9-2) Lipase 16 (11-82) U/L TSH 2.042 (0.300-4.500) uIu/ml Urine Color Yellow Urine Appearance Clear (Clear) Urine pH 5.5 (4.5-7.5) Ur Specific [place] >= 1.030 (1.000-1.030) Urine Protein Negative (Negative) Urine Glucose (UA) Negative (Negative) Urine Ketones Negative (Negative) Urine Blood Negative (Negative) Urine Nitrite Negative (Negative) Urine Bilirubin Negative (Negative) Urine Urobilinogen Negative (Negative) Ur Leukocyte Esterase Negative (Negative) Lyme Disease Screen Negative (Negative) Administered Medications Discontinued Medications Amlodipine Besylate (Amlodipine Besylate 5 Mg Tab) 5 mg PO BLANCA [facility] Stop: 01/18/24 08:59 Last Admin: 12/19/23 08:42 Dose: 5 mg Documented By: JUSTUS Amlodipine Besylate (Amlodipine Besylate 5 Mg Tab) 10 mg PO NOW ONE Stop: 12/20/23 02:46 Last Admin: 12/20/23 03:21 Dose: 10 mg Documented By: KRYSTLE Amlodipine Besylate (Amlodipine Besylate 5 Mg Tab) 10 mg PO QAM [facility] Stop: 01/20/24 08:59 Last Admin: 12/20/23 08:23 Dose: 10 mg Documented By: JUSTUS Apixaban (Apixaban 5 Mg Tablet) 5 mg PO BID [facility]HA Stop: 01/17/24 20:59 Last Admin: 12/20/23 08:22 Dose: 5 mg Documented By: Admin: 12/19/23 20:39 Dose: 5 mg Documented By: Admin: 12/19/23 08:43 Dose: 5 mg Documented By: Admin: 12/18/23 20:41 Dose: 5 mg Documented By: KATIE Atorvastatin Calcium (Atorvastatin 10 Mg Tab) 10 mg PO QPM [facility]ISHA Stop: 01/17/24 20:59 Last Admin: 12/19/23 20:40 Dose: 10 mg Documented By: Admin: 12/18/23 20:40 Dose: 10 mg Documented By: KATIE Clonidine HCl (Clonidine Hcl 0.1 Mg Tab) 0.1 mg PO NOW ONE Stop: 12/20/23 04:56 Last Admin: 12/20/23 05:09 Dose: 0.1 mg Documented By: KRYSTLE Cyanocobalamin (Cyanocobalamin (B-12) 500 Mcg Tablet) 1,000 mcg PO PM LAISHA Stop: 01/17/24 20:59 Last Admin: 12/19/23 20:39 Dose: 1,000 mcg Documented By: Admin: 12/18/23 20:41 Dose: 1,000 mcg Documented By: KATIE Famotidine (Famotidine 20 Mg Tab) 20 mg PO BID LAISHA Stop: 01/17/24 20:59 Last Admin: 12/20/23 08:22 Dose: 20 mg Documented By: Admin: 12/19/23 20:40 Dose: 20 mg Documented By: Admin: 12/19/23 08:42 Dose: 20 mg Documented By: Admin: 12/18/23 20:41 Dose: 20 mg Documented By: KATIE Magnesium Sulfate/Dextrose (Magnesium Sulfate / D5w) 1 gm in 100 mls @ 100 mls/hr IV Q1H [facility] Stop: 12/18/23 14:57 Last Infusion: 12/18/23 17:30 Dose: Infused Documented By: Admin: 12/18/23 13:54 Dose: 100 mls/hr Documented By: Infusion: 12/18/23 13:54 Dose: Infused Documented By: Admin: 12/18/23 13:03 Dose: 100 mls/hr Documented By: CHRISTOPHER Sodium Chloride (Nss) 1,000 mls @ 125 mls/hr IV .Q8H [facility] Stop: 01/17/24 14:44 Last Infusion: 12/18/23 17:30 Dose: Infused Documented By: Admin: 12/18/23 14:52 Dose: 125 mls/hr Documented By: HS Sodium Chloride (Nss) 1,000 mls @ 80 mls/hr IV .[id number] [facility] Stop: 12/19/23 05:57 Last Infusion: 12/19/23 05:25 Dose: Infused Documented By: Admin: 12/18/23 17:58 Dose: 80 mls/hr Documented By: AGUS Magnesium Sulfate/Dextrose (Magnesium Sulfate / D5w) 1 gm in 100 mls @ 50 mls/hr IV ONE ONE Stop: 12/18/23 19:27 Last Infusion: 12/18/23 22:15 Dose: Infused Documented By: Admin: 12/18/23 18:08 Dose: 50 mls/hr Documented By: AGUS Insulin Aspart (Insulin Aspart Per Unit Charge) 0 units SC ACHS [facility] Stop: 01/17/24 17:27 Last Admin: 12/20/23 12:40 Dose: 3 units Documented By: JUSTUS Co-signed By: ENDY Admin: 12/20/23 09:21 Dose: 4 units Documented By: JUSTUS Co-signed By: ENDY Admin: 12/19/23 20:21 Dose: Not Given Documented By: Admin: 12/19/23 17:57 Dose: 4 units Documented By: JUSTUS Co-signed By: DES Admin: 12/19/23 12:57 Dose: 2 units Documented By: JUSTUS Co-signed By: DES Admin: 12/19/23 08:46 Dose: 2 units Documented By: JUSTUS Co-signed By: AGUSTO Admin: 12/18/23 21:25 Dose: 1 units Documented By: KATIE Co-signed By: KRYSTLE Admin: 12/18/23 18:11 Dose: 2 units Documented By: AGUS Co-signed By: CHRISTY Insulin Glargine (Lantus Per Unit Charge) 0 - 10 units SQ BID [facility] Stop: 01/17/24 20:59 Last Admin: 12/20/23 09:21 Dose: 5 units Documented By: JUSTUS Co-signed By: ENDY Admin: 12/19/23 20:36 Dose: 5 units Documented By: KRYSTLE Co-signed By: ANTONIA Admin: 12/19/23 08:43 Dose: Not Given Documented By: Admin: 12/18/23 21:25 Dose: 5 units Documented By: KATIE Co-signed By: KRYSTLE Ioversol (Optiray 320 100ml) 94 ml IV ONCE ONE Stop: 12/19/23 09:16 Last Admin: 12/19/23 09:16 Dose: 94 ml Documented By: VERONICA Lactobacillus Acidophilus (Advanced Probiotic 625 Mg Capsule) 1,250 mg PO QAM [facility] Stop: 01/18/24 08:59 Last Admin: 12/20/23 08:24 Dose: 1,250 mg Documented By: Admin: 12/19/23 08:43 Dose: 1,250 mg Documented By: JUSTUS Levetiracetam (Levetiracetam 500 Mg Tab) 500 mg PO BID [facility] Stop: 01/17/24 20:59 Last Admin: 12/20/23 08:22 Dose: 500 mg Documented By: Admin: 12/19/23 20:38 Dose: 500 mg Documented By: Admin: 12/19/23 08:42 Dose: 500 mg Documented By: Admin: 12/18/23 20:41 Dose: 500 mg Documented By: KATIE Levothyroxine Sodium (Levothyroxine Sodium 75 Mcg Tablet) 75 mcg PO DAILYBB [facility] Stop: 01/18/24 06:29 Last Admin: 12/20/23 05:09 Dose: 75 mcg Documented By: Admin: 12/19/23 05:21 Dose: 75 mcg Documented By: KATIE Losartan Potassium (Losartan Potassium 50 Mg Tab) 100 mg PO HS [facility] Stop: 01/17/24 20:59 Last Admin: 12/19/23 20:38 Dose: 100 mg Documented By: Admin: 12/18/23 20:40 Dose: 100 mg Documented By: KATIE Magnesium Oxide (Magnesium Oxide 400 Mg Tab) 400 mg PO TID [facility] Stop: 01/17/24 20:59 Last Admin: 12/20/23 13:27 Dose: 400 mg Documented By: Admin: 12/20/23 08:23 Dose: 400 mg Documented By: Admin: 12/19/23 20:37 Dose: 400 mg Documented By: Admin: 12/19/23 13:34 Dose: 400 mg Documented By: Admin: 12/19/23 08:41 Dose: 400 mg Documented By: Admin: 12/18/23 20:40 Dose: 400 mg Documented By: KATIE Melatonin (Melatonin 3 Mg Tab) 6 mg PO HS [facility] Stop: 01/17/24 20:59 Last Admin: 12/19/23 20:36 Dose: 6 mg Documented By: Admin: 12/18/23 20:40 Dose: 6 mg Documented By: KATIE Multivitamins (Multivitamin Tab) 1 tab PO QAM [facility] Stop: 01/18/24 08:59 Last Admin: 12/20/23 08:24 Dose: 1 tab Documented By: Admin: 12/19/23 08:42 Dose: 1 tab Documented By: JUSTUS Oxybutynin Chloride (Oxybutynin Chloride Xl 5 Mg Tabcr) 10 mg PO PM [facility] Stop: 01/17/24 20:59 Last Admin: 12/19/23 20:39 Dose: 10 mg Documented By: Admin: 12/18/23 20:41 Dose: 10 mg Documented By: KATIE Sodium Chloride (Sodium Chloride 1 Gm Tablet) 1 gm PO TID [facility] Stop: 01/17/24 20:59 Last Admin: 12/20/23 13:27 Dose: 1 gm Documented By: Admin: 12/20/23 08:22 Dose: 1 gm Documented By: Admin: 12/19/23 20:38 Dose: 1 gm Documented By: Admin: 12/19/23 13:34 Dose: 1 gm Documented By: Admin: 12/19/23 08:42 Dose: 1 gm Documented By: Admin: 12/18/23 20:40 Dose: 1 gm Documented By: KATIE Vitamin D (Cholecalciferol 25 Mcg (1000 Units) Tab) 25 mcg PO QAM [facility] Stop: 01/18/24 08:59 Last Admin: 12/20/23 08:22 Dose: 25 mcg Documented By: Admin: 12/19/23 08:41 Dose: 25 mcg Documented By: JUSTUS Imaging Data Radiologist's Impression: Chest X-Ray 12/18/23 12:22 XR chest 1V portable HISTORY: confusion COMPARISON: Chest 11/30/2018. FINDINGS: No pneumothorax. No pleural effusions. The cardiac silhouette remains moderately enlarged. No evidence for pulmonary edema. No new focal lung consolidations. There is a tortuous thoracic aorta, unchanged. Left-sided dual- chamber pacemaker. Bilateral total shoulder arthroplasties are noted. Old, healed right rib fractures. IMPRESSION: Stable cardiomegaly. Otherwise, no acute process within the chest. ACT 112: Negative or not required by law. Electronically signed by: Terell Morel M.D. 12/18/2023 12:[address] 12/18/23 12:22 CT head/brain wo con CLINICAL HISTORY: 78 years-old Female with confusion. Acutely altered mental status TECHNIQUE: Multiple axial CT images of the head were obtained without contrast. A dose lowering technique was utilized adhering to the principles of ALARA. CT DOSE: 547.75 mGy.cm COMPARISON: None. FINDINGS: No acute intracranial hemorrhage, midline shift, intracranial mass, hydrocephalus, territorial ischemia or abnormal extra-axial collection. Involutional changes with chronic microvascular ischemic disease. Chronic basal ganglia and periventricular lacunar infarcts. Motion degraded exam. The calvarium is intact. Prior bilateral lens repair. The paranasal sinuses, mastoid air cells, and middle ear cavities are clear. IMPRESSION: 1. No acute intracranial normality identified. 2. Involutional changes with chronic microvascular ischemic disease. 3. Chronic appearing periventricular and basal ganglia lacunar infarcts. ACT 112: Negative or not required by law. The above report was generated using voice recognition software. It may contain grammatical, syntax or spelling errors. Electronically signed by: Peter Terry M.D. 12/18/2023 12:52 PM Discharge Plan Visit Data Chief Complaint: Confusion Stated Complaint: CONFUSION X2 DAYS ED Provider: Areli Howard Discharge Problem: Altered mental status, Hyponatremia Patient Disposition: Admitted As Inpatient Discharge Instructions Interventions: ED Discharge Assessment Last Done: 12/18/23 17:11
[2023-12-18 12:47] LABS: Basophils # (auto) 0.05 K/uL (0.00-0.20); Basophils % (auto) 0.7 %; Eosinophils # (auto) 0.12 K/uL (0.00-0.50); Eosinophils % (auto) 1.6 %; Hematocrit (blood only) 39.6 % (37.0-47.0); Hemoglobin 13.1 g/dl (12.0-16.0); Immature Granulocytes # (auto) 0.03 K/uL (0.01-0.20); Immature Granulocytes % (auto) 0.4 %; Lymphocytes # (auto) 1.02 K/uL (1.20-3.40); Lymphocytes % (auto) 13.6 %; Mean Corpuscular Hemoglobin 29.6 pg (25.0-34.0); Mean Corpuscular Hgb Conc 33.1 g/dL (32.0-36.0); Mean Corpuscular Volume 89.6 fL (80.0-100.0); Mean Platelet Volume 8.1 fL (9.4-12.4); Monocytes # (auto) 0.79 K/uL (0.11-0.59); Monocytes % (auto) 10.5 %; Neutrophils # (auto) 5.48 K/uL (1.40-6.50); Neutrophils % (auto) 73.2 %; Platelet Count 250 K/uL (130-400); RDW Coefficient of Variation 13.2 % (11.5-14.5); RDW Standard Deviation 43.5 fL (36.4-46.3); Red Blood Count 4.42 M/uL (4.20-5.40); White Blood Count 7.49 K/ul (4.8-10.8)
--- NOTE | 2023-12-18 12:52 | XRay Report ---
XR chest 1V portable HISTORY: confusion COMPARISON: Chest 11/30/2018. FINDINGS: No pneumothorax. No pleural effusions. The cardiac silhouette remains moderately enlarged. No evidence for pulmonary edema. No new focal lung consolidations. There is a tortuous thoracic aorta , unchanged. Left-sided dual-chamber pacemaker. Bilateral total shoulder arthroplasties are noted. Ol d, healed right rib fractures. IMPRESSION: Stable cardiomegaly. Otherwise, no acute process within the chest. ACT 112: Negative or not required by law. Electronically signed by: Terell Morel M.D. 12/18/2023 12:50 PM
--- NOTE | 2023-12-18 12:54 | CT Scan Report ---
CT head/brain wo con CLINICAL HISTORY: 78 years-old Female with confusion. Acutely altered mental status TECHNIQUE: Multiple axial CT images of the head were obtained without contrast. A dose lowering tech nique was utilized adhering to the principles of ALARA. CT DOSE: 547.75 mGy.cm COMPARISON: None. FINDINGS: No acute intracranial hemorrhage, midline shift, intracranial mass, hydrocephalus, territorial ischem ia or abnormal extra-axial collection. Involutional changes with chronic microvascular ischemic disea se. Chronic basal ganglia and periventricular lacunar infarcts. Motion degraded exam. The calvarium is intact. Prior bilateral lens repair. The paranasal sinuses, mastoid air cells, and m iddle ear cavities are clear. IMPRESSION: 1. No acute intracranial normality identified. 2. Involutional changes with chronic microvascular ischemic disease. 3. Chronic appearing periventricular and basal ganglia lacunar infarcts. ACT 112: Negative or not required by law. The above report was generated using voice recognition software. It may contain grammatical, syntax o r spelling errors. Electronically signed by: Peter Terry M.D. 12/18/2023 12:52 PM
[2023-12-18 12:56] LABS: Albumin Globulin Ratio 1.4 (0.9-2); Albumin Level 4.2 gm/dl (3.4-5.0); BUN Creatinine Ratio 15.4 (10-20); Bilirubin,Total 0.7 mg/dl (0.2-1.0); Calcium 9.7 mg/dl (8.6-10.3); Creatinine Clr Calc Pharmacy 60.3 ml/min; Est GFR (African American) 84.4 ml/min; Est GFR (Non-African American) 72.8 ml/min; Globulin 3.1 gm/dl (2.5-4.0); Magnesium 1.4 mg/dl (1.7-2.4); Total Protein 7.3 gm/dl (6.0-8.3)
[2023-12-18 13:03] LABS: Troponin I High Sensitivity 6.4 pg/ml (0-14)
[2023-12-18] MEDS: MAGNESIUM SULFATE / D5W 1 GM/100 ML BAG IV SCH (13:03)
[2023-12-18 13:04] LABS: INR 1.1 (0.9-1.1); Prothrombin Time 11.4 Seconds (9.0-12.0)
[2023-12-18 13:13] LABS: Thyroid Stimulating Hormone 2.042 uIu/ml (0.300-4.500)
[2023-12-18 13:26] LABS: Appearance Urine Clear (Clear); Bilirubin Urine Negative (Negative); Blood Urine Negative (Negative); Color Urine Yellow; Glucose Urine UA Negative (Negative); Ketones Urine Negative (Negative); Leukocyte Esterase Urine Negative (Negative); Nitrite Urine Negative (Negative); Protein Urine Negative (Negative); Specific Gravity Urine >= 1.030 (1.000-1.030); Urobilinogen Urine Negative (Negative); pH Urine 5.5 (4.5-7.5)
[2023-12-18] MEDS: SODIUM CHLORIDE 0.9% 1,000 ML IV SCH ×2 (14:52→17:58)
--- NOTE | 2023-12-18 15:57 | History & Physical Report ---
Date of Service December 18, 2023 Assessment & Plan (1) Delirium: (2) Diabetes mellitus, type II: (3) Hypertension: (4) Hypothyroidism: (5) Hypomagnesemia: Plan This is a 78-year-old female who has a significant past medical history of type 2 diabetes mellitus, PAF on Eliquis, Cardiac pacemaker insitu, HTN, HLD, history of brain bleed, chronic hyponatremia who presents to ED secondary to altered mental status. Transient Delirium Pt and daughter report intermittent episodes of confusion, no remembering family names as well as confused with tasks she typically does In ED infectious w/u is unremarkable, no signs of toxicosis, TSH WNL Sodium and magnesium low, but doubt that is ultimate source She has not had any new medication changes CT head: Involutional changes with chronic microvascular ischemic disease.3. 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 Humphreys/ Shadi ARITA Pt was seen and examined in collaboration with Dr. Andres, please see addendum A total of 78 minutes was spent coordinating, documenting, and providing care for this patient excluding time spent in the performance of separately billed services. This included personally viewing all current laboratories and imaging studies, medication reconciliation, outpatient chart review, and discussion with specialists. History of Present Illness Chief Complaint: Confusion Primary Care Provider: Aj Humphreys This is a 78-year-old female who has a significant past medical history of type 2 diabetes mellitus, PAF on Eliquis, Cardiac pacemaker insitu, HTN, HLD, history of brain bleed, chronic hyponatremia who presents to ED secondary to altered mental status. Daughter is at bedside who helps elicit history. Patient currently lives in an apartment by herself but has significant family support. She typically ambulates with a cane. At baseline she is alert and oriented and denies any prior history of dementia. Daughter states yesterday she was acting funny and did not know the names of her granddaughters which has never happened before. She was also having similar episodes today where she was not remembering things that she typically would. Again this is out of the ordinary for patient. At the time there was no apparent seizure-like activity, staring, facial droop or focal weakness. She has had episodes of confusion in the past in relation to a urinary tract infection or low sodium. Patient denies any recent illness, fever, chills, sweats, lightheadedness, dizziness, headache, chest pain, shortness breath, nausea, vomiting or abdominal pain, change in bowel or urinary habits. She further denies any burning with urination melena or hematochezia. She is chronic only on anticoagulation due to history of A- fib. in ED patient remained hemodynamically stable although she was modestly hypertensive. She reports that she took her morning medications. Patient's PCP is Dr. Humphreys/Shadi ARITA and therefore outpatient records not immediately available to review. She follows with a business applications manager at [facility]. Her sawmill equipment operator is in [place]. Her workup in ED was relatively unremarkable including urinalysis. She did have mild low magnesium and therefore this was replaced. Her head CT revealed no acute intracranial abnormality but revealed involutional changes with chronic microvascular ischemic changes as well as chronic appearing periventricular and basal ganglia lacunar infarcts. Allergies Allergy/AdvReac Type Severity Reaction Status Date / Time KVNG Inhibitors Allergy Unknown UNKNOWN Verified 12/18/23 16:29 Penicillins Allergy Unknown . Verified 12/18/23 16:29 prednisone Allergy Unknown UNKNOWN Verified 12/18/23 16:29 Home Medications Medication Instructions Recorded Confirmed Type atorvastatin 10 mg tablet 10 mg PO QPM 11/30/18 12/18/23 History cholecalciferol (vitamin D3) 25 1,000 unit PO QAM 11/30/18 12/18/23 History mcg (1,000 unit) tablet insulin glargine 100 unit/mL (3 12 unit subcut HS 11/30/18 12/18/23 History mL) subcutaneous pen (Basaglar EliPen U-100 Insulin) levothyroxine 75 mcg tablet 75 mcg PO DAILYBB 11/30/18 12/18/23 History losartan 100 mg tablet 100 mg PO HS 11/30/18 12/18/23 History magnesium oxide 400 mg PO TID 11/30/18 12/18/23 History amlodipine 5 mg tablet (Norvasc) 5 mg PO QAM #30 tabs 12/02/18 12/18/23 Rx Lactobacillus acidophilus 10 10,000 mmu cells PO QAM 12/18/23 12/18/23 History billion cell capsule (Probiotic) apixaban 5 mg tablet (Eliquis) 5 mg PO BID 12/18/23 12/18/23 History benzonatate 100 mg capsule 100 mg PO TID PRN Cough 12/18/23 12/18/23 History cranberry 500 mg capsule 500 mg PO QAM 12/18/23 12/18/23 History cyanocobalamin (vitamin B-12) 1,000 mcg PO DAILY 12/18/23 12/18/23 History 1,000 mcg tablet (Vitamin B-12) famotidine 20 mg tablet 20 mg PO BID 12/18/23 12/18/23 History levetiracetam 500 mg tablet 500 mg PO BID 12/18/23 12/18/23 History melatonin 3 mg tablet 6 mg PO HS 12/18/23 12/18/23 History metformin 1,000 mg tablet 1,000 mg PO BID 12/18/23 12/18/23 History multivitamin (Daily-Josee tablet) 1 tab PO QAM 12/18/23 12/18/23 History sodium chloride 1,000 mg soluble 1,000 mg PO TID 12/18/23 12/18/23 History tablet tolterodine 4 mg capsule,extended 4 mg PO PM 12/18/23 12/18/23 History release 24 hr vitamin A-vitamin C-vit E-min 1 tab PO QAM 12/18/23 12/18/23 History tablet Past Med/Surg History Problem List (Updated 12/18/23 @ 16:51 by Sanaz Bond PA-C) Hypomagnesemia Delirium Altered mental status (Acute) Renal mass CAD (coronary artery disease) (Chronic) Anxiety (Chronic) Gout (Chronic) HLD (hyperlipidemia) (Chronic) Hypothyroidism (Chronic) Diabetes mellitus, type II (Chronic) Hyponatremia (Acute) Cough (Acute) Hypertension (Chronic) Surgical History History of cholecystectomy History of bilateral knee replacement Family History Other Heart disease Stomach cancer Social History Smoking Status: Never smoker Second Hand Exposure: No; Do You Dip or Chew Tobacco: No; Hx Alcohol Use: Yes Alcohol type: wine Hx Substance Use: No Preferred Language: Bruneian Communication Ability: Effective Controls Design Engineer Required: No Beliefs That Will Affect Care: None Current Living Situation: Spouse Feels Safe at Home: Yes Assistive Devices: Cane Review of Systems Review of Systems: All systems reviewed & are unremarkable except as noted in HPI & below Physical Exam Physical Exam: Constitutional: WD/WN, Elderly, F, vitals as above, NAD, sitting up in bed, pleasant, conversing easily Head: Normocephalic, Atraumatic Eyes: PERRL, conjunctivae normal, anicteric sclerae ENMT: external ear and nose normal, oropharynx normal Neck: trachea midline, no thyromegaly normal visual inspection Respiratory: normal respiratory effort, lungs clear to auscultation, no wheeze, rales, rhonchi. Normal insp/exp effort, no accessory muscle use Cardiovascular: RRR, 2/6 harsh GIORGI RUSB, no edema, b/l venous stasis changes mild Vessels: no JVD or carotid bruit Chest: normal inspection of chest Abdomen: normal bowel sounds, soft, nontender, no hepatosplenomegaly Musculoskeletal: no cyanosis or clubbing, extremities motor strength 5/5 Skin: no rashes, warm and dry normal turgor Neurologic: PERRL, EOMI, accommodation nl, no face palsy, no dysarthria CN's II-XI intact bilaterally and moves all extremities Psychiatric: A+Ox3, euthymic affect : deferred Results & Data Results & Data Vital Signs (Past 12 Hours) Vital Signs Temp Pulse Resp BP Pulse Ox 12/18/23 14:33 60 23 97 12/18/23 14:30 182/87 H 12/18/23 14:30 182/87 H 12/18/23 14:30 182/87 H 12/18/23 14:30 182/87 H 12/18/23 14:27 61 16 97 12/18/23 14:15 181/84 H 12/18/23 14:15 181/84 H 12/18/23 14:15 181/84 H 12/18/23 14:15 60 20 95 12/18/23 14:06 61 20 96 12/18/23 14:01 168/82 H 12/18/23 13:48 60 22 93 12/18/23 13:45 186/84 H 12/18/23 13:45 186/84 H 12/18/23 13:39 62 19 94 12/18/23 13:33 64 20 94 12/18/23 13:30 167/85 H 12/18/23 13:30 167/85 H 12/18/23 13:30 167/85 H 12/18/23 13:30 167/85 H 12/18/23 13:24 64 20 96 12/18/23 13:15 149/98 H 12/18/23 13:15 149/98 H 12/18/23 13:12 68 24 95 12/18/23 13:06 65 24 96 12/18/23 13:00 168/79 H 12/18/23 13:00 168/79 H 12/18/23 12:57 64 24 95 12/18/23 12:15 175/97 H 12/18/23 12:15 175/97 H 12/18/23 12:12 60 21 93 12/18/23 12:11 61 12/18/23 12:07 182/89 H 12/18/23 11:53 36.3 C L 60 20 168/78 H 97 Laboratory Results I have independently reviewed and interpreted patient's admitting labs including CBC, CMP, PT/INR, mag, TSH, lipase, UA and troponin. Diagnostic Findings Chest X-Ray 12/18/23 12:22 XR chest 1V portable HISTORY: confusion COMPARISON: Chest 11/30/2018. FINDINGS: No pneumothorax. No pleural effusions. The cardiac silhouette remains moderately enlarged. No evidence for pulmonary edema. No new focal lung consolidations. There is a tortuous thoracic aorta, unchanged. Left-sided dual- chamber pacemaker. Bilateral total shoulder arthroplasties are noted. Old, healed right rib fractures. IMPRESSION: Stable cardiomegaly. Otherwise, no acute process within the chest. ACT 112: Negative or not required by law. Electronically signed by: Terell Morel M.D. 12/18/2023 12:[address] 12/18/23 12:22 CT head/brain wo con CLINICAL HISTORY: 78 years-old Female with confusion. Acutely altered mental status TECHNIQUE: Multiple axial CT images of the head were obtained without contrast. A dose lowering technique was utilized adhering to the principles of ALARA. CT DOSE: 547.75 mGy.cm COMPARISON: None. FINDINGS: No acute intracranial hemorrhage, midline shift, intracranial mass, hydrocephalus, territorial ischemia or abnormal extra-axial collection. Involutional changes with chronic microvascular ischemic disease. Chronic basal ganglia and periventricular lacunar infarcts. Motion degraded exam. The calvarium is intact. Prior bilateral lens repair. The paranasal sinuses, mastoid air cells, and middle ear cavities are clear. IMPRESSION: 1. No acute intracranial normality identified. 2. Involutional changes with chronic microvascular ischemic disease. 3. Chronic appearing periventricular and basal ganglia lacunar infarcts. ACT 112: Negative or not required by law. The above report was generated using voice recognition software. It may contain grammatical, syntax or spelling errors. Electronically signed by: Peter Terry M.D. 12/18/2023 12:52 PM Medications Administered Medication List Sodium Chloride (Nss) 1,000 mls @ 125 mls/hr IV .Q8H LAISHA Stop: 01/17/24 14:44 Last Admin: 12/18/23 14:52 Dose: 125 mls/hr Documented By: HS Discontinued Medications Magnesium Sulfate/Dextrose (Magnesium Sulfate / D5w) 1 gm in 100 mls @ 100 mls/hr IV Q1H LAISHA Stop: 12/18/23 14:57 Last Admin: 12/18/23 13:54 Dose: 100 mls/hr Documented By: Infusion: 12/18/23 13:54 Dose: Infused Documented By: Admin: 12/18/23 13:03 Dose: 100 mls/hr Documented By: HS ECG Additional Comments: I have independently reviewed and interpreted patient's admitting EKG which revealed: 64 atrial paced with PVC, qtc 435ms, no st or t wave change COVID-19 Results Results COVID-19 Adm Lab Results: RBC 4.42 M/uL (4.20-5.40) 12/18/23 WBC 7.49 K/ul (4.8-10.8) 12/18/23 Hgb 13.1 g/dl (12.0-16.0) 12/18/23 Hct 39.6 % (37.0-47.0) 12/18/23 Plt Count 250 K/uL (130-400) 12/18/23 Neutrophils (%) (Auto) 73.2 % 12/18/23 Lymphocytes (%) (Auto) 13.6 % 12/18/23 Monocytes # (Auto) 0.79 K/uL (0.11-0.59) H 12/18/23 Eosinophils # (Auto) 0.12 K/uL (0.00-0.50) 12/18/23 Immature Granulocyte % (Auto) 0.4 % 12/18/23 Neutrophils # (Auto) 5.48 K/uL (1.40-6.50) 12/18/23 Lymphocytes # (Auto) 1.02 K/uL (1.20-3.40) L 12/18/23 Monocytes # (Auto) 0.79 K/uL (0.11-0.59) H 12/18/23 Eosinophils # (Auto) 0.12 K/uL (0.00-0.50) 12/18/23 Basophils # (Auto) 0.05 K/uL (0.00-0.20) 12/18/23 Immature Granulocyte # (Auto) 0.03 K/uL (0.01-0.20) 4 Na 132 mmol/L (136-145) L 12/18/23 Cl 95 mmol/L (98-107) L 12/18/23 CO2 28 mmol/L (21-32) 12/18/23 Anion Gap 9 (3-11) 12/18/23 BUN 12 mg/dl (6-23) 12/18/23 Creatinine 0.78 mg/dl (0.6-1.2) 12/18/23 BUN/Creatinine Ratio 15.4 (10-20) 12/18/23 Glucose Level 190 mg/dl (70-99(Fasting)) H 12/18/23 Ca 9.7 mg/dl (8.6-10.3) 12/18/23 Total Bilirubin 0.7 mg/dl (0.2-1.0) 12/18/23 AST/SGOT 17 U/L (13-39) 12/18/23 ALT/SGPT 8 U/L (7-52) 12/18/23 Alkaline Phosphatase 98 U/L (34-104) 12/18/23 Total Protein 7.3 gm/dl (6.0-8.3) 12/18/23 Albumin 4.2 gm/dl (3.4-5.0) 12/18/23 Globulin 3.1 gm/dl (2.5-4.0) 12/18/23 Albumin/Globulin Ratio 1.4 (0.9-2) 12/18/23 INR 1.1 (0.9-1.1) 12/18/23 Chest X-Ray 12/18/23 Code Status & VTE Plan VTE Prophylaxis Plan VTE Prophylaxis will be ordered: No Reason for no VTE drug order: Treatment not indicated Supervising Physician Co-Signing Physician Notes Attending addendum: The patient was seen and examined in emergency room in presence of the daughter She was brought in with change in mental status which seems to be improving in the emergency room She has been forgetting things recently as an example she cannot remember her last 4 digits of Social Security number Denies any significant symptoms On examination Blood pressure noted to be high at 186/78 otherwise afebrile Chest-clear to auscultate bilaterally Heart-S1-S2, regular Abdomen-benign Extremities-no edema 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 No focal sensory or motor deficit appreciated Her admission labs, EKG and imaging studies reviewed Noted to have old chronic appearing periventricular and basal ganglia lacunar infarcts Doubt if it is causing any questionable change in mental status or forgetfulness Will get a CT with contrast tomorrow as she cannot go for MRI due to pacemaker status No infection identified Agree with and take full responsibility of the assessment and plan as outlined above by JUAN J Mujica Dr
--- NOTE | 2023-12-18 16:03 | Electrocardiogram Report ---
Test Reason : Blood Pressure : / mmHG Vent. Rate : 064 BPM Atrial Rate : 064 BPM P-R Int : 186 ms QRS Dur : 088 ms QT Int : 422 ms P-R-T Axes : 046 -46 030 degrees QTc Int : 435 ms Atrial-paced rhythm with Premature supraventricular complexes Left anterior fascicular block Minimal voltage criteria for LVH, may be normal variant Abnormal ECG When compared with ECG of 02-DEC-2018 10:20, Electronic atrial pacemaker has replaced Sinus rhythm Confirmed by Raul Witt ([id number]) on 12/18/2023 4:03:17 PM Referred By: Confirmed By:Alex Witt
[2023-12-18] MEDS ORDERED: GLUCOSE 10 TAB/TUBE PO PRN (17:28)
[2023-12-18] MEDS ORDERED: ACETAMINOPHEN 325 MG TAB PO PRN (17:28)
[2023-12-18] MEDS ORDERED: POLYETHYLENE (MIRALAX) 17 GM PACK PO PRN (17:28)
[2023-12-18] MEDS ORDERED: DEXTROSE 50% 50 ML SYRINGE IV PRN (17:28)
[2023-12-18] MEDS ORDERED: ONDANSETRON INJ 2 MG/ML 2 ML VIAL IV PRN (17:28)
[2023-12-18] MEDS ORDERED: MAGNESIUM HYDROXIDE SUSP 30 ML UDC PO PRN (17:28)
[2023-12-18] MEDS ORDERED: GLUCAGON FOR INJ 1 MG VIAL SQ PRN (17:28)
[2023-12-18] MEDS ORDERED: GLUCOSE 40% GEL 15 GM TUBE PO PRN (17:28)
[2023-12-18] MEDS ORDERED: CARBOHYDRATES FOR HYPOGLYCEMIA PO PRN (17:28)
[2023-12-18] MEDS ORDERED: ALUMINUM/MAGNESIUM SUSP 30 ML UDC PO PRN (17:28)
[2023-12-18] MEDS: MAGNESIUM SULFATE / D5W 1 GM/100 ML BAG IV ONE (18:08)
[2023-12-18] MEDS: INSULIN ASPART PER UNIT CHARGE SC SCH (18:11)
[2023-12-18] MEDS: MELATONIN 3 MG TAB PO SCH (20:40)
[2023-12-18] MEDS: MAGNESIUM OXIDE 400 MG TAB PO SCH (20:40)
[2023-12-18] MEDS: ATORVASTATIN 10 MG TAB PO SCH (20:40)
[2023-12-18] MEDS: SODIUM CHLORIDE 1 GM TABLET PO SCH (20:40)
[2023-12-18] MEDS: LOSARTAN POTASSIUM 50 MG TAB PO SCH (20:40)
[2023-12-18] MEDS: FAMOTIDINE 20 MG TAB PO SCH (20:41)
[2023-12-18] MEDS: CYANOCOBALAMIN (B-12) 500 MCG TABLET PO SCH (20:41)
[2023-12-18] MEDS: APIXABAN 5 MG TABLET PO SCH (20:41)
[2023-12-18] MEDS: OXYBUTYNIN CHLORIDE XL 5 MG TABCR PO SCH (20:41)
[2023-12-18] MEDS: levETIRAcetam 500 MG TAB PO SCH (20:41)
[2023-12-18] MEDS: LANTUS PER UNIT CHARGE SQ SCH (21:25)
[2023-12-19 00:42] LABS: Amphetamines+Metham, Urine Neg (Neg); Barbiturates, Urine Neg (Neg); Benzodiazepine, Urine Neg (Neg); Cocaine, Urine Neg (Neg); Fentanyl, Urine Neg (Neg); MDMA (Ecstacy), Urine Neg (Neg); Marijuana, Urine Neg (Neg); Methadone, Urine Neg (Neg); Opiate, Urine Neg (Neg); Phencyclidine, Urine Neg (Neg)
[2023-12-19] MEDS: LEVOTHYROXINE SODIUM 75 MCG TABLET PO SCH (05:21)
[2023-12-19 07:47] LABS: Basophils # (auto) 0.04 K/uL (0.00-0.20); Basophils % (auto) 0.5 %; Eosinophils # (auto) 0.24 K/uL (0.00-0.50); Eosinophils % (auto) 3.1 %; Hematocrit (blood only) 37.1 % (37.0-47.0); Hemoglobin 12.5 g/dl (12.0-16.0); Immature Granulocytes # (auto) 0.03 K/uL (0.01-0.20); Immature Granulocytes % (auto) 0.4 %; Lymphocytes # (auto) 1.59 K/uL (1.20-3.40); Lymphocytes % (auto) 20.9 %; Mean Corpuscular Hgb Conc 33.7 g/dL (32.0-36.0); Mean Corpuscular Volume 89.2 fL (80.0-100.0); Monocytes # (auto) 0.85 K/uL (0.11-0.59); Monocytes % (auto) 11.2 %; Neutrophils # (auto) 4.87 K/uL (1.40-6.50); Neutrophils % (auto) 63.9 %; Platelet Count 237 K/uL (130-400); RDW Coefficient of Variation 13.1 % (11.5-14.5); Red Blood Count 4.16 M/uL (4.20-5.40); White Blood Count 7.62 K/ul (4.8-10.8)
[2023-12-19 08:01] LABS: Albumin Globulin Ratio 1.5 (0.9-2); BUN Creatinine Ratio 17.1 (10-20); Bilirubin,Total 0.8 mg/dl (0.2-1.0); Calcium 8.9 mg/dl (8.6-10.3); Creatinine Clr Calc Pharmacy 65.4 ml/min; Est GFR (African American) 96.2 ml/min; Globulin 2.7 gm/dl (2.5-4.0); Magnesium 1.8 mg/dl (1.7-2.4); Potassium 3.6 mmol/L (3.5-5.1); Total Protein 6.7 gm/dl (6.0-8.3)
[2023-12-19] MEDS: CHOLECALCIFEROL 25 MCG (1000 UNITS) TAB PO SCH (08:41)
[2023-12-19] MEDS: amLODIPine BESYLATE 5 MG TAB PO SCH (08:42)
[2023-12-19] MEDS: MULTIVITAMIN TAB PO SCH (08:42)
[2023-12-19] MEDS: ADVANCED PROBIOTIC 625 MG CAPSULE PO SCH (08:43)
[2023-12-19 08:51] LABS: Estimated Average Glucose 143 mg/dl; Hemoglobin A1C 6.6 % (4.5-5.6)
[2023-12-19] MEDS ORDERED: NON-FORMULARY MEDICATION (Multivitamin [Daily-Vite] Tablet) PO SCH (09:00)
[2023-12-19] MEDS: OPTIRAY 320 100ml IV ONE (09:16)
--- NOTE | 2023-12-19 09:30 | CT Scan Report ---
CT head/brain w con CT DOSE: 547.75 mGy.cm CLINICAL HISTORY: transient altered mental status TECHNIQUE: Multiaxial CT images of the head were performed following the intravenous administration o f contrast. A dose lowering technique was utilized adhering to the principles of ALARA. COMPARISON STUDY: Noncontrast head CT 12/18/2023. FINDINGS: The paranasal sinuses and mastoid air cells are clear. The calvarium and skull base are int act. Mild atrophy and microvascular ischemic changes again noted. No abnormal enhancement. There is n o mass, hematoma, midline shift, acute infarct. Old right basal ganglia infarct is again noted. IMPRESSION: 1. No significant change compared to the prior study. No acute intracranial abnormality. 2. No abnormal enhancement. ACT 112: Negative or not required by law. Electronically signed by: Terell Morel M.D. 12/19/2023 9:28 AM
--- NOTE | 2023-12-19 16:39 | Hospitalist Progress Note ---
Date of Service December 19, 2023 Assessment & Plan (1) Vascular dementia with delirium: (2) Atherosclerotic cerebrovascular disease: (3) Delirium: (4) Diabetes mellitus, type II: (5) Hypothyroidism: Plan Patient with acute delirium with underlying vascular dementia based on imaging. Suspects patient may have acute event at home such as some dehydration with the heat recently. Continue to observe Phone conversation with daughter, updated her on differential diagnosis and tr eatment plan Anticipate home with home health potentially as soon as tomorrow. Admission and Anticipated Discharge Date Admission Date: December 18, 2023 Subjective Patient's mental status is seems to be somewhat improved this morning. Seems to wax and wane throughout the day Physical Exam Physical Exam: Constitutional: Alert HEENT: Mucous membranes moist. Lungs: Clear to auscultation, decreased, no wheezes rales or rhonchi CV: S1-S2, regular Abdomen: Soft, nontender, nondistended Extremities: No significant edema Neuro: No focal deficits, oriented to self Psych: Cooperative, normal mood Results & Data Results & Data Vital Signs (Past 12 Hours) Vital Signs Temp Pulse Pulse Resp BP Pulse Ox O2 Del Method 12/19/23 15:56 36.4 C L 60 20 165/79 H 96 Room Air 12/19/23 14:00 65 12/19/23 11:08 36.5 C 60 16 128/74 96 Room Air 12/19/23 07:39 36.5 C 61 18 148/78 H 95 Room Air 12/19/23 07:08 62 Diagnostic Findings Reviewed imaging, laboratory and diagnostic studies. Pertinent findings as below. Laboratory studies reviewed, sodium [address] shows cerebrovascular disease, old infarct but no acute findings or acute changes from yesterday Echocardiogram ejection fraction 55 to 60%, otherwise no significant findings TSH therapeutic Hemoglobin A1c 6.6
[2023-12-20] MEDS: amLODIPine BESYLATE 5 MG TAB PO ONE (03:21)
[2023-12-20] MEDS: cloNIDine HCL 0.1 MG TAB PO ONE (05:09)
[2023-12-20 07:03] LABS: BUN Creatinine Ratio 21.1 (10-20); Calcium 9.1 mg/dl (8.6-10.3); Creatinine Clr Calc Pharmacy 62.8 ml/min; Est GFR (African American) 94.6 ml/min; Est GFR (Non-African American) 81.6 ml/min; Magnesium 1.7 mg/dl (1.7-2.4); Potassium 3.6 mmol/L (3.5-5.1)
[2023-12-20] MEDS: amLODIPine BESYLATE 5 MG TAB PO SCH (08:23)
--- NOTE | 2023-12-20 12:40 | Discharge Summary ---
Discharge Summary Date of Service December 20, 2023 Principal Dx & Hospital Course #1 = Principal Diagnosis (1) Vascular dementia with delirium: (2) Atherosclerotic cerebrovascular disease: (3) Diabetes mellitus, type II: (4) Hypothyroidism: Plan Patient 78-year-old female presented to the hospital with what was thought to be acute delirium. Workup in the emergency room and throughout her hospitalization was negative for acute medical condition as an explanation however acute delirium cleared. Patient had multiple images of her brain. Did show evidence of previous stroke but no acute stroke. Did show significant cerebral vascular disease. In further discussion with the family patient's memory was starting to fail slightly but was still very independent and living by herself. Suspect that the patient may have gotten a bit dehydrated and the recent heat wave we have had. She reported that she would sit out on her front porch in the evenings when she felt it was cooler and she also reported probably did not take enough liquid in. Suspect this little stressor on top of her chronic cerebrovascular disease and mild cerebral vascular dementia exacerbated her symptoms and cause some acute delirium. She improved with some hydration. We reviewed this with her. Care management was involved with the patient's care and worked with the patient and the family to get some home health services and office of aging involved to check on her. Otherwise there were no other acute issues that require hospital level care. And she can be discharged outpatient care and follow-up. Notes For Next Care Provider Continue to monitor for progressive symptoms of advancing vascular dementia, could consider starting Namenda and/or Aricept. Medication Changes From Visit None Admission HPI Per Admitting Provider This is a 78-year-old female who has a significant past medical history of type 2 diabetes mellitus, PAF on Eliquis, Cardiac pacemaker insitu, HTN, HLD, history of brain bleed, chronic hyponatremia who presents to ED secondary to alt ered mental status. Daughter is at bedside who helps elicit history. Patient currently lives in an apartment by herself but has significant family support. She typically ambulates with a cane. At baseline she is alert and oriented and denies any prior history of dementia. Daughter states yesterday she was acting funny and did not know the names of her granddaughters which has never happened before. She was also having similar episodes today where she was not remembering things that she typically would. Again this is out of the ordinary for patient. At the time there was no apparent seizure-like activity, staring, facial droop or focal weakness. She has had episodes of confusion in the past in relation to a urinary tract infection or low sodium. Patient denies any recent illness, fever, chills, sweats, lightheadedness, dizziness, headache, chest pain, shortness breath, nausea, vomiting or abdominal pain, change in bowel or urinary habits. She further denies any burning with urination melena or hematochezia. She is chronic only on anticoagulation due to history of A- fib. in ED patient remained hemodynamically stable although she was modestly hypertensive. She reports that she took her morning medications. Patient's PCP is Dr. Humphreys/Shadi ARITA and therefore outpatient records not immediately available to review. She follows with a final assembler at [facility]. Her assembly line leader is in [place]. Her workup in ED was relatively unremarkable including urinalysis. She did have mild low magnesium and therefore this was replaced. Her head CT revealed no acute intracranial abnormality but revealed involutional changes with chronic microvascular ischemic changes as well as chronic appearing periventricular and basal ganglia lacunar infarcts. Discharge Exam Constitutional: Alert HEENT: Mucous membranes moist. Lungs: Clear to auscultation, decreased, no wheezes rales or rhonchi CV: S1-S2, regular Abdomen: Soft, nontender, nondistended Extremities: No significant edema Neuro: No focal deficits Psych: Cooperative, normal mood, oriented to person, year, month. Updated Medication List Medication Instructions Recorded Confirmed Type atorvastatin 10 mg tablet 10 mg PO QPM 11/30/18 12/18/23 History cholecalciferol (vitamin D3) 25 1,000 unit PO QAM 11/30/18 12/18/23 History mcg (1,000 unit) tablet insulin glargine 100 unit/mL (3 12 unit subcut HS 11/30/18 12/18/23 History mL) subcutaneous pen (Basaglar KwikPen U-100 Insulin) levothyroxine 75 mcg tablet 75 mcg PO DAILYBB 11/30/18 12/18/23 History losartan 100 mg tablet 100 mg PO HS 11/30/18 12/18/23 History magnesium oxide 400 mg PO TID 11/30/18 12/18/23 History amlodipine 5 mg tablet (Norvasc) 5 mg PO QAM #30 tabs 12/02/18 12/18/23 Rx Lactobacillus acidophilus 10 10,000 mmu cells PO QAM 12/18/23 12/18/23 History billion cell capsule (Probiotic) apixaban 5 mg tablet (Eliquis) 5 mg PO BID 12/18/23 12/18/23 History benzonatate 100 mg capsule 100 mg PO TID PRN Cough 12/18/23 12/18/23 History cranberry 500 mg capsule 500 mg PO QAM 12/18/23 12/18/23 History cyanocobalamin (vitamin B-12) 1,000 mcg PO DAILY 12/18/23 12/18/23 History 1,000 mcg tablet (Vitamin B-12) famotidine 20 mg tablet 20 mg PO BID 12/18/23 12/18/23 History levetiracetam 500 mg tablet 500 mg PO BID 12/18/23 12/18/23 History melatonin 3 mg tablet 6 mg PO HS 12/18/23 12/18/23 History metformin 1,000 mg tablet 1,000 mg PO BID 12/18/23 12/18/23 History multivitamin (Daily-Josee tablet) 1 tab PO QAM 12/18/23 12/18/23 History sodium chloride 1,000 mg soluble 1,000 mg PO TID 12/18/23 12/18/23 History tablet tolterodine 4 mg capsule,extended 4 mg PO PM 12/18/23 12/18/23 History release 24 hr vitamin A-vitamin C-vit E-min 1 tab PO QAM 12/18/23 12/18/23 History tablet Hospital Stay Data Consultations 12/18/23 15:01 ED Decision to Admit Stat Diagnostic Imagining Performed 12/18/23 12:22 CT head/brain wo con Stat 12/19/23 09:00 CT head/brain w con Routine Reviewed imaging, laboratory and diagnostic studies. Pertinent findings as below. Repeat head CT no acute changes, evidence of previous strokes and cerebrovascular disease Sodium 134, stable Creatinine 0.71 Magnesium 1.7 TSH 2.0 Hemoglobin A1c 6.6 Lyme screen negative Pending Results Patient Have Any Pending Studies at Discharge: No Discharge Instructions Given to Patient (Per Discharging Provider) Stay well-hydrated Stay in the house when it is extremely hot outside Home Health Attestation I certify that this patient is under my care and that I, or a physicians digital marketing assistant working with me, had a face to-face encounter that meets the home health [id number] encounter requirements with this patient. The encounter with the patient was in whole, or in part, for the following medical condition, which is the primary reason for home health care (list medical condition): altered mental status- low magnesium-possible mild dehydration I certify that, based on my findings, the following services are medically necessary home health services: My clinical findings support the need for the above services because: OT Assess ADL Status and Restore Function w ADLs PT Assessment for Endurance / Balance / Strength PT Eval for Safety and Mobility PT Eval for Safety, Gait Training, Assistive Devices PT Gait and Balance Training, Strengthening and Safety Skilled Nsg Assessment Skilled Nsg Assess and Instruct on Diet Further, I certify that my clinical findings support that this patient is homebound (i.e. absences from home require considerable and taxing effort and are for medical reasons or nondenominational services or infrequently or of short duration when for other reasons) because: Transportation Assistance/Unable to Leave Home Unassisted Certification for Home Health Services: Based on the above findings, I certify that this patient is confined to the home and needs intermittent penitentiary care, physical therapy and/or speech therapy or continues to need occupational therapy. The patient is under my care, and I have initiated the establishment of the plan of care. This patient will be followed by a physician who will periodically review the plan of care. Total Time Total Time Spent Total Time Spent (In Minutes): 37
== END 2023-12-20 14:35 | disposition home health service (06) | DRG 884 ==
LOC: ED 11:36 → SUATTDRO 15:13 → 2N 15:13